=== PATIENT | male | born 1970 | race Caucasian/White ===

== ENCOUNTER 2018-05-17 14:08 | Inpatient (IN) | payer SELFPAY ==
[2018-05-17 14:20] VITALS: BP 183/112; PULSE 110; RESP 24; TEMP 37.5; O2SAT 95; BMI 29.2
--- NOTE | 2018-05-17 14:27 | DI.RAD.S_ITS ---
PROCEDURE: XR CHEST 2V INDICATIONS: short of breath, cough TECHNIQUE: 2 views of the chest were acquired. COMPARISON: None. FINDINGS: Surgical changes and devices: None. Lungs and pleura: Centrilobular and interstitial infiltrates are seen, which are more prominent on the right side than on the left. No pneumothorax is seen. No large pleural effusion. Mediastinum: Mediastinal contours are normal. Heart size is normal. Bones and chest wall: No suspicious bony abnormalities. Soft tissues appear unremarkable. IMPRESSION: Central alveolar and interstitial type infiltrates are seen. This is felt most likely to be related to infection, although differential diagnosis includes fluid overload and inflammatory change. If it would be helpful for clinical management decision making, please consider a dedicated chest CT with contrast for further evaluation. Dictated by: Dusty Veronica M.D. on 05/17/2018 at 13:55 Approved by: Dusty Veronica M.D. on 05/17/2018 at 13:56
[2018-05-17 14:35] VITALS: O2SAT 97
[2018-05-17] MEDS: ALBUTEROL/IPRATROPIUM 3 ML AMPUL INH (14:35)
--- NOTE | 2018-05-17 14:38 | PC.NURSE ---
Per RT, Wheezes heard t/o lungs. Duo neb per protocol
[2018-05-17 14:45] VITALS: O2SAT 97
--- NOTE | 2018-05-17 15:16 | ED.SOB ---
HPI - SOB/Dyspnea <DEV Spear - Last Filed: 05/17/18 22:27> General Chief Complaint: Shortness of Breath/Dyspnea Stated Complaint: shortness of breath, coughing blood up Time Seen by Provider: 05/17/18 15:05 Source: patient Mode of arrival: ambulatory Limitations: no limitations History of Present Illness 47-year-old male with history of hypertension that is an occasional smoker here for complaint of having cough that has been productive over the past couple of weeks. He also reports of having has sensation of chest pressure during the same timeframe. He has been coughing up whitish phlegm with blood tinged sputum. He states he has had a for low-grade fever over the same timeframe. He was seen at the [facility] 2 weeks ago there was some thought that he was having some ST elevation on his EKG troponin was negative. D-dimer was obtained and was elevated. he was instructed to go to the emergency room for further evaluation and he did not. He has not been seen since this timeframe. He reports the symptoms have not resolved. Positive p.o. intake. No nausea vomiting. Related Data Home Medications Medication Instructions Recorded Confirmed diltiazem HCl 240 mg PO QPM 05/17/18 05/17/18 tizanidine 4 mg PO Q6-8H PRN 05/17/18 05/17/18 trazodone 50 mg PO BEDTIME 05/17/18 05/17/18 Allergies Allergy/AdvReac Type Severity Reaction Status Date / Time No Known Drug Allergies Allergy Verified 05/17/18 17:42 Review of Systems <DEV Spear - Last Filed: 05/17/18 22:27> Constitutional Denies chills, Reports fever(s), Denies lethargy and Denies weakness Eyes Denies change in vision, Denies eye discharge, Denies irritation and Denies loss of vision ENT Ears, Nose, Mouth, and Throat: Denies change in voice, Denies neck pain, Denies sore throat and Denies throat swelling Cardiovascular Denies chest pain, Denies irregular heart rhythm, Denies lightheadedness, Denies palpitations and Denies orthopnea Comments: Chest pressure Respiratory Reports chest congestion, Reports cough and Denies wheezing Gastrointestinal Gastrointestinal: Denies abdominal pain, Denies change in bowel habits, Denies diarrhea, Denies nausea and Denies vomiting Genitourinary Denies hematuria, Denies flank pain, Denies urinary incontinence and Denies urinary urgency Musculoskeletal Denies neck pain Integumentary/Breasts Denies pruritus, Denies erythema, Denies rash and Denies wounds Neurologic Denies confusion, Denies loss of vision and Denies weakness Psychiatric Denies anxiety, Denies confusion, Denies depression, Denies homicidal ideation and Denies suicidal ideation Endocrine Denies palpitations Allergic/Immunologic Denies urticaria, Denies throat swelling and Denies wheezing Exam <DEV Spear - Last Filed: 05/17/18 22:27> Initial Vital Signs Initial Vital Signs: Vital Signs Temperature 99.5 F 05/17/18 14:20 Pulse Rate 110 H 05/17/18 14:20 Respiratory Rate 24 05/17/18 14:20 Blood Pressure 183/112 H 05/17/18 14:20 Pulse Oximetry 95 05/17/18 14:20 Const General: cooperative and well developed Nutritional Appearance: well nourished Orientation: alert, awake and oriented x3 HENMT Mouth: oral mucosae normal and moist mucous membranes Eyes Conjunctivae: conjunctivae normal Sclera: sclerae normal Pupils: PERRL EOM: EOM intact bilaterally Neck Neck: normal visual inspection, trachea midline, No lymphadenopathy, No midline deformity and No JVD Lymphatic: No lymphedema Resp Effort & Inspection: normal respiratory effort, able to speak in complete sentences, no respiratory distress and no use of accessory muscles Auscultation: not clear to auscultation bilaterally, rales, no rhonchi and no wheezes Cardio Rate: regular rate Rhythm: regular rhythm Heart Sounds: no click, no gallops, no murmurs and no rubs Pulses: normal peripheral pulses Skin General: no rashes or lesions noted, No jaundice and No petechiae Neuro General: alert, oriented x3, gait normal and no focal motor deficits Speech: speech normal <Tayler Alejo DO - Last Filed: 05/18/18 17:18> Initial Vital Signs Initial Vital Signs: Vital Signs Temperature 99.5 F 05/17/18 14:20 Pulse Rate 110 H 05/17/18 14:20 Respiratory Rate 24 05/17/18 14:20 Blood Pressure 183/112 H 05/17/18 14:20 Pulse Oximetry 95 05/17/18 14:20 Course <DEV Spear - Last Filed: 05/17/18 22:27> Orders Ordered: ED Orders 05/18/18 09:21 Consult to Respiratory Therapy Evaluate & Treat Discontinued Medications Hydrocodone Bitart/Acetaminophen ([place] 5/325) 1 tab PO Q12H PRN PRN Reason: Pain, Moderate (4-6) Last Admin: 05/18/18 10:05 Dose: 1 tab Admin: 05/17/18 22:55 Dose: 1 tab Hydrocodone Bitart/Acetaminophen ([place] 5/325) 2 tab PO Q12H PRN PRN Reason: Pain, Severe (7-10) Last Admin: 05/18/18 01:01 Dose: 1 tab Albuterol (Ventolin) 2.5 mg INH NOW ONE Stop: 05/17/18 15:06 Last Admin: 05/17/18 15:53 Dose: 2.5 mg Albuterol/Ipratropium (Duoneb) 3 ml INH NOW ONE Stop: 05/17/18 14:34 Last Admin: 05/17/18 14:35 Dose: 3 ml Albuterol/Ipratropium (Duoneb) 3 ml INH NOW PRN PRN Reason: Shortness Of Breath Or Wheezing Last Admin: 05/18/18 10:03 Dose: 3 ml Diltiazem HCl (Cardizem Cd) 240 mg PO QPM PATRICIA Last Admin: 05/17/18 20:21 Dose: 240 mg Admin: 05/17/18 20:02 Dose: 240 mg Furosemide (Lasix) 40 mg IV NOW ONE Stop: 05/17/18 17:21 Last Admin: 05/17/18 17:30 Dose: 40 mg Sodium Chloride (Normal Saline 0.9%) 1,000 mls @ 1,000 mls/hr IV BOLUS ONE Stop: 05/17/18 16:14 Last Infusion: 05/17/18 17:09 Dose: 0 mls/hr Admin: 05/17/18 15:53 Dose: 1,000 mls/hr Levofloxacin (Levaquin) 750 mg in 150 mls @ 100 mls/hr IV NOW ONE Stop: 05/17/18 18:49 Last Infusion: 05/17/18 17:38 Dose: 100 mls/hr Admin: 05/17/18 17:30 Dose: 100 mls/hr Dextrose/Sodium Chloride (Dextrose 5%-0.9% Ns) 1,000 mls @ 100 mls/hr IV CONT PATRICIA Last Admin: 05/18/18 05:20 Dose: 100 mls/hr Infusion: 05/18/18 05:20 Dose: 100 mls/hr Admin: 05/17/18 19:27 Dose: 100 mls/hr Levofloxacin (Levaquin) 500 mg in 100 mls @ 100 mls/hr IV Q24H [facility] Last Infusion: 05/18/18 10:02 Dose: 0 mls/hr Admin: 05/18/18 09:23 Dose: 100 mls/hr Lorazepam (Ativan) 1 mg IV NOW ONE Stop: 05/18/18 05:29 Last Admin: 05/18/18 05:40 Dose: 1 mg Lorazepam (Ativan) 1 mg IV Q4HR PRN PRN Reason: Anxiety Tizanidine HCl (Zanaflex) 4 mg PO Q6H PRN PRN Reason: Spasms Last Admin: 05/17/18 20:22 Dose: 4 mg Tramadol HCl (Ultram) 50 mg PO NOW ONE Stop: 05/18/18 01:10 Last Admin: 05/18/18 01:19 Dose: 50 mg Trazodone HCl (Desyrel) 50 mg PO BEDTIME [facility] Last Admin: 05/17/18 20:22 Dose: 50 mg Zolpidem Tartrate (Ambien) 10 mg PO BEDTIME PRN PRN Reason: Sleep Last Admin: 05/17/18 22:55 Dose: 10 mg Vital Signs - 8 hr 05/18/18 10:03 Pulse Rate 87 Respiratory Rate 22 Pulse Oximetry 88 L <Tayler Alejo, - Last Filed: 05/18/18 17:18> Orders Ordered: ED Orders 05/18/18 09:21 Consult to Respiratory Therapy Evaluate & Treat Discontinued Medications Hydrocodone Bitart/Acetaminophen ([place] 5/325) 1 tab PO Q12H PRN PRN Reason: Pain, Moderate (4-6) Last Admin: 05/18/18 10:05 Dose: 1 tab Admin: 05/17/18 22:55 Dose: 1 tab Hydrocodone Bitart/Acetaminophen ([place] 5/325) 2 tab PO Q12H PRN PRN Reason: Pain, Severe (7-10) Last Admin: 05/18/18 01:01 Dose: 1 tab Albuterol (Ventolin) 2.5 mg INH NOW ONE Stop: 05/17/18 15:06 Last Admin: 05/17/18 15:53 Dose: 2.5 mg Albuterol/Ipratropium (Duoneb) 3 ml INH NOW ONE Stop: 05/17/18 14:34 Last Admin: 05/17/18 14:35 Dose: 3 ml Albuterol/Ipratropium (Duoneb) 3 ml INH NOW PRN PRN Reason: Shortness Of Breath Or Wheezing Last Admin: 05/18/18 10:03 Dose: 3 ml Diltiazem HCl (Cardizem Cd) 240 mg PO QPM PATRICIA Last Admin: 05/17/18 20:21 Dose: 240 mg Admin: 05/17/18 20:02 Dose: 240 mg Furosemide (Lasix) 40 mg IV NOW ONE Stop: 05/17/18 17:21 Last Admin: 05/17/18 17:30 Dose: 40 mg Sodium Chloride (Normal Saline 0.9%) 1,000 mls @ 1,000 mls/hr IV BOLUS ONE Stop: 05/17/18 16:14 Last Infusion: 05/17/18 17:09 Dose: 0 mls/hr Admin: 05/17/18 15:53 Dose: 1,000 mls/hr Levofloxacin (Levaquin) 750 mg in 150 mls @ 100 mls/hr IV NOW ONE Stop: 05/17/18 18:49 Last Infusion: 05/17/18 17:38 Dose: 100 mls/hr Admin: 05/17/18 17:30 Dose: 100 mls/hr Dextrose/Sodium Chloride (Dextrose 5%-0.9% Ns) 1,000 mls @ 100 mls/hr IV CONT PATRICIA Last Admin: 05/18/18 05:20 Dose: 100 mls/hr Infusion: 05/18/18 05:20 Dose: 100 mls/hr Admin: 05/17/18 19:27 Dose: 100 mls/hr Levofloxacin (Levaquin) 500 mg in 100 mls @ 100 mls/hr IV Q24H PATRICIA Last Infusion: 05/18/18 10:02 Dose: 0 mls/hr Admin: 05/18/18 09:23 Dose: 100 mls/hr Lorazepam (Ativan) 1 mg IV NOW ONE Stop: 05/18/18 05:29 Last Admin: 05/18/18 05:40 Dose: 1 mg Lorazepam (Ativan) 1 mg IV Q4HR PRN PRN Reason: Anxiety Tizanidine HCl (Zanaflex) 4 mg PO Q6H PRN PRN Reason: Spasms Last Admin: 05/17/18 20:22 Dose: 4 mg Tramadol HCl (Ultram) 50 mg PO NOW ONE Stop: 05/18/18 01:10 Last Admin: 05/18/18 01:19 Dose: 50 mg Trazodone HCl (Desyrel) 50 mg PO BEDTIME PATRICIA Last Admin: 05/17/18 20:22 Dose: 50 mg Zolpidem Tartrate (Ambien) 10 mg PO BEDTIME PRN PRN Reason: Sleep Last Admin: 05/17/18 22:55 Dose: 10 mg Vital Signs - 8 hr 05/18/18 10:03 Pulse Rate 87 Respiratory Rate 22 Pulse Oximetry 88 L MDM - SOB/Dyspnea <DVE Spear - Last Filed: 05/17/18 22:27> Lab Data Result diagrams: 05/18/18 05:00 05/17/18 15:15 Lab Results 05/17/18 05/17/18 05/17/18 Range/Units 15:15 15:15 15:15 WBC 7.7 (4.5-11.0) X10^3/uL RBC 3.93 L (4.5-5.9) X10^6/uL Hgb 11.3 L (13.5-17.5) g/dL Hct 33.2 L (41-53) % MCV 84.4 (80-100) fL MCH 28.8 (26-34) PG MCHC 34.1 (30-36) % RDW 12.9 (11.6-14.8) % Plt Count 309 (150-400) X10^3/uL Neut % (Auto) 76.3 H (50-75) % Lymph % (Auto) 13.8 L (25-40) % Walker % (Auto) 8.8 (3-14) % Eos % (Auto) 0.6 L (2-4) % Baso % (Auto) 0.5 (0-2) % Neut # (Auto) 5900 (5469-0286) /uL ESR (0-15) MM/HR PT (10.1-12.7) SECONDS INR (0.9-1.3) APTT (26.4-36.2) SECONDS Sodium 139 (137-145) mmol/L Potassium 3.7 (3.4-5.1) mmol/L Chloride 101 (98-107) mmol/L Carbon Dioxide 28 (22-32) mmol/L BUN 16 (9-20) mg/dL Creatinine 0.80 (0.66-1.25) mg/dL Estimated GFR > 60.0 (>60) mL/min BUN/Creatinine Ratio 20.0 (6-22) Glucose 113 H (70-100) mg/dL Lactate (0.7-2.1) mmol/L Calcium 8.6 (8.4-10.2) mg/dL Total Bilirubin 0.5 (0.2-1.3) mg/dL AST 55 (17-59) IU/L ALT 63 (21-72) IU/L Alkaline Phosphatase 63 (38-126) U/L Total Creatine Kinase (55-170) U/L CK-MB (CK-2) CK-MB (CK-2) Rel Index Troponin I (0.01-0.034) ng/mL C-Reactive Protein (<1.0) mg/dL B-Natriuretic Peptide (<100) Total Protein 6.0 L (6.3-8.2) g/dL Albumin 3.4 L (3.5-5.0) g/dL Globulin 2.6 (1.7-4.1) g/dL Albumin/Globulin Ratio 1.3 (1.0-2.8) Procalcitonin < 0.05 (<0.5) ng/mL Nasal Screen MRSA (PCR) (Negative) Chlamy pneumoniae PCR (Not Detect) Adenovirus (PCR) (Not Detect) B.parapertussis DNA PCR (Not Detect) Coronavirus OC43 (PCR) (Not Detect) Coronavirus HKU1 (PCR) (Not Detect) Coronavirus 229E (PCR) (Not Detect) Coronavirus NL63 (PCR) (Not Detect) HIV 1&2 Antibody (NEGATIVE) Human Metapneumovir PCR (Not Detect) Influenza Type A (PCR) (Not Detect) Influenza Type B (PCR) (Not Detect) M. pneumoniae (PCR) (Not Detect) Parainfluenza 1 (PCR) (Not Detect) Parainfluenza 2 (PCR) (Not Detect) Parainfluenza 3 (PCR) (Not Detect) Parainfluenza 4 (PCR) (Not Detect) RSV (PCR) (Not Detect) Entero/Rhino (PCR) (Not Detect) 05/17/18 05/17/18 05/17/18 Range/Units 15:15 15:15 15:15 WBC (4.5-11.0) X10^3/uL RBC (4.5-5.9) X10^6/uL Hgb (13.5-17.5) g/dL Hct (41-53) % MCV (80-100) fL MCH (26-34) PG MCHC (30-36) % RDW (11.6-14.8) % Plt Count (150-400) X10^3/uL Neut % (Auto) (50-75) % Lymph % (Auto) (25-40) % Walker % (Auto) (3-14) % Eos % (Auto) (2-4) % Baso % (Auto) (0-2) % Neut # (Auto) (5775-2743) /uL ESR (0-15) MM/HR PT (10.1-12.7) SECONDS INR (0.9-1.3) APTT (26.4-36.2) SECONDS Sodium (137-145) mmol/L Potassium (3.4-5.1) mmol/L Chloride (98-107) mmol/L Carbon Dioxide (22-32) mmol/L BUN (9-20) mg/dL Creatinine (0.66-1.25) mg/dL Estimated GFR (>60) mL/min BUN/Creatinine Ratio (6-22) Glucose (70-100) mg/dL Lactate 0.9 (0.7-2.1) mmol/L Calcium (8.4-10.2) mg/dL Total Bilirubin (0.2-1.3) mg/dL AST (17-59) IU/L ALT (21-72) IU/L Alkaline Phosphatase (38-126) U/L Total Creatine Kinase 91 (55-170) U/L CK-MB (CK-2) TNP CK-MB (CK-2) Rel Index TNP Troponin I 0.052 H (0.01-0.034) ng/mL C-Reactive Protein (<1.0) mg/dL B-Natriuretic Peptide 409.0 H (<100) Total Protein (6.3-8.2) g/dL Albumin (3.5-5.0) g/dL Globulin (1.7-4.1) g/dL Albumin/Globulin Ratio (1.0-2.8) Procalcitonin (<0.5) ng/mL Nasal Screen MRSA (PCR) (Negative) Chlamy pneumoniae PCR (Not Detect) Adenovirus (PCR) (Not Detect) B.parapertussis DNA PCR (Not Detect) Coronavirus OC43 (PCR) (Not Detect) Coronavirus HKU1 (PCR) (Not Detect) Coronavirus 229E (PCR) (Not Detect) Coronavirus NL63 (PCR) (Not Detect) HIV 1&2 Antibody (NEGATIVE) Human Metapneumovir PCR (Not Detect) Influenza Type A (PCR) (Not Detect) Influenza Type B (PCR) (Not Detect) M. pneumoniae (PCR) (Not Detect) Parainfluenza 1 (PCR) (Not Detect) Parainfluenza 2 (PCR) (Not Detect) Parainfluenza 3 (PCR) (Not Detect) Parainfluenza 4 (PCR) (Not Detect) RSV (PCR) (Not Detect) Entero/Rhino (PCR) (Not Detect) 05/17/18 05/17/18 05/17/18 Range/Units 19:00 20:02 20:02 WBC (4.5-11.0) X10^3/uL RBC (4.5-5.9) X10^6/uL Hgb (13.5-17.5) g/dL Hct (41-53) % MCV (80-100) fL MCH (26-34) PG MCHC (30-36) % RDW (11.6-14.8) % Plt Count (150-400) X10^3/uL Neut % (Auto) (50-75) % Lymph % (Auto) (25-40) % Walker % (Auto) (3-14) % Eos % (Auto) (2-4) % Baso % (Auto) (0-2) % Neut # (Auto) (2717-2208) /uL ESR (0-15) MM/HR PT 14.5 H (10.1-12.7) SECONDS INR 1.3 (0.9-1.3) APTT 33 (26.4-36.2) SECONDS Sodium (137-145) mmol/L Potassium (3.4-5.1) mmol/L Chloride (98-107) mmol/L Carbon Dioxide (22-32) mmol/L BUN (9-20) mg/dL Creatinine (0.66-1.25) mg/dL Estimated GFR (>60) mL/min BUN/Creatinine Ratio (6-22) Glucose (70-100) mg/dL Lactate (0.7-2.1) mmol/L Calcium (8.4-10.2) mg/dL Total Bilirubin (0.2-1.3) mg/dL AST (17-59) IU/L ALT (21-72) IU/L Alkaline Phosphatase (38-126) U/L Total Creatine Kinase (55-170) U/L CK-MB (CK-2) CK-MB (CK-2) Rel Index Troponin I (0.01-0.034) ng/mL C-Reactive Protein 6.1 H (<1.0) mg/dL B-Natriuretic Peptide (<100) Total Protein (6.3-8.2) g/dL Albumin (3.5-5.0) g/dL Globulin (1.7-4.1) g/dL Albumin/Globulin Ratio (1.0-2.8) Procalcitonin (<0.5) ng/mL Nasal Screen MRSA (PCR) Negative for mrsa (Negative) Chlamy pneumoniae PCR (Not Detect) Adenovirus (PCR) (Not Detect) B.parapertussis DNA PCR (Not Detect) Coronavirus OC43 (PCR) (Not Detect) Coronavirus HKU1 (PCR) (Not Detect) Coronavirus 229E (PCR) (Not Detect) Coronavirus NL63 (PCR) (Not Detect) HIV 1&2 Antibody (NEGATIVE) Human Metapneumovir PCR (Not Detect) Influenza Type A (PCR) (Not Detect) Influenza Type B (PCR) (Not Detect) M. pneumoniae (PCR) (Not Detect) Parainfluenza 1 (PCR) (Not Detect) Parainfluenza 2 (PCR) (Not Detect) Parainfluenza 3 (PCR) (Not Detect) Parainfluenza 4 (PCR) (Not Detect) RSV (PCR) (Not Detect) Entero/Rhino (PCR) (Not Detect) 05/17/18 05/18/18 05/18/18 Range/Units 20:02 05:00 Unknown WBC 6.8 (4.5-11.0) X10^3/uL RBC 3.74 L (4.5-5.9) X10^6/uL Hgb 10.7 L (13.5-17.5) g/dL Hct 31.6 L (41-53) % MCV 84.5 (80-100) fL MCH 28.6 (26-34) PG MCHC 33.9 (30-36) % RDW 13.0 (11.6-14.8) % Plt Count 285 (150-400) X10^3/uL Neut % (Auto) 70.7 (50-75) % Lymph % (Auto) 16.4 L (25-40) % Walker % (Auto) 11.9 (3-14) % Eos % (Auto) 0.6 L (2-4) % Baso % (Auto) 0.4 (0-2) % Neut # (Auto) 4800 (0923-1519) /uL ESR 42 H (0-15) MM/HR PT (10.1-12.7) SECONDS INR (0.9-1.3) APTT (26.4-36.2) SECONDS Sodium (137-145) mmol/L Potassium (3.4-5.1) mmol/L Chloride (98-107) mmol/L Carbon Dioxide (22-32) mmol/L BUN (9-20) mg/dL Creatinine (0.66-1.25) mg/dL Estimated GFR (>60) mL/min BUN/Creatinine Ratio (6-22) Glucose (70-100) mg/dL Lactate (0.7-2.1) mmol/L Calcium (8.4-10.2) mg/dL Total Bilirubin (0.2-1.3) mg/dL AST (17-59) IU/L ALT (21-72) IU/L Alkaline Phosphatase (38-126) U/L Total Creatine Kinase (55-170) U/L CK-MB (CK-2) CK-MB (CK-2) Rel Index Troponin I (0.01-0.034) ng/mL C-Reactive Protein (<1.0) mg/dL B-Natriuretic Peptide 440.0 H (<100) Total Protein (6.3-8.2) g/dL Albumin (3.5-5.0) g/dL Globulin (1.7-4.1) g/dL Albumin/Globulin Ratio (1.0-2.8) Procalcitonin (<0.5) ng/mL Nasal Screen MRSA (PCR) (Negative) Chlamy pneumoniae PCR (Not Detect) Adenovirus (PCR) (Not Detect) B.parapertussis DNA PCR (Not Detect) Coronavirus OC43 (PCR) (Not Detect) Coronavirus HKU1 (PCR) (Not Detect) Coronavirus 229E (PCR) (Not Detect) Coronavirus NL63 (PCR) (Not Detect) HIV 1&2 Antibody Negative (NEGATIVE) Human Metapneumovir PCR (Not Detect) Influenza Type A (PCR) (Not Detect) Influenza Type B (PCR) (Not Detect) M. pneumoniae (PCR) (Not Detect) Parainfluenza 1 (PCR) (Not Detect) Parainfluenza 2 (PCR) (Not Detect) Parainfluenza 3 (PCR) (Not Detect) Parainfluenza 4 (PCR) (Not Detect) RSV (PCR) (Not Detect) Entero/Rhino (PCR) (Not Detect) 05/18/18 Range/Units Unknown WBC (4.5-11.0) X10^3/uL RBC (4.5-5.9) X10^6/uL Hgb (13.5-17.5) g/dL Hct (41-53) % MCV (80-100) fL MCH (26-34) PG MCHC (30-36) % RDW (11.6-14.8) % Plt Count (150-400) X10^3/uL Neut % (Auto) (50-75) % Lymph % (Auto) (25-40) % Walker % (Auto) (3-14) % Eos % (Auto) (2-4) % Baso % (Auto) (0-2) % Neut # (Auto) (1589-1361) /uL ESR (0-15) MM/HR PT (10.1-12.7) SECONDS INR (0.9-1.3) APTT (26.4-36.2) SECONDS Sodium (137-145) mmol/L Potassium (3.4-5.1) mmol/L Chloride (98-107) mmol/L Carbon Dioxide (22-32) mmol/L BUN (9-20) mg/dL Creatinine (0.66-1.25) mg/dL Estimated GFR (>60) mL/min BUN/Creatinine Ratio (6-22) Glucose (70-100) mg/dL Lactate (0.7-2.1) mmol/L Calcium (8.4-10.2) mg/dL Total Bilirubin (0.2-1.3) mg/dL AST (17-59) IU/L ALT (21-72) IU/L Alkaline Phosphatase (38-126) U/L Total Creatine Kinase (55-170) U/L CK-MB (CK-2) CK-MB (CK-2) Rel Index Troponin I (0.01-0.034) ng/mL C-Reactive Protein (<1.0) mg/dL B-Natriuretic Peptide (<100) Total Protein (6.3-8.2) g/dL Albumin (3.5-5.0) g/dL Globulin (1.7-4.1) g/dL Albumin/Globulin Ratio (1.0-2.8) Procalcitonin (<0.5) ng/mL Nasal Screen MRSA (PCR) (Negative) Chlamy pneumoniae PCR Not detected (Not Detect) Adenovirus (PCR) Not detected (Not Detect) B.parapertussis DNA PCR Not detected (Not Detect) Coronavirus OC43 (PCR) Not detected (Not Detect) Coronavirus HKU1 (PCR) Not detected (Not Detect) Coronavirus 229E (PCR) Not detected (Not Detect) Coronavirus NL63 (PCR) Not detected (Not Detect) HIV 1&2 Antibody (NEGATIVE) Human Metapneumovir PCR Not detected (Not Detect) Influenza Type A (PCR) Not detected (Not Detect) Influenza Type B (PCR) Not detected (Not Detect) M. pneumoniae (PCR) Not detected (Not Detect) Parainfluenza 1 (PCR) Not detected (Not Detect) Parainfluenza 2 (PCR) Not detected (Not Detect) Parainfluenza 3 (PCR) Not detected (Not Detect) Parainfluenza 4 (PCR) Not detected (Not Detect) RSV (PCR) Not detected (Not Detect) Entero/Rhino (PCR) Not detected (Not Detect) Imaging Data Chest x-ray: Radiologist's impression: [address] [place] [id number] XRay Report Signed Patient: Al Velez EMR#: [id number] : 1970Acct:[id number] Age/Sex: 47 / MDate of Service: 05/17/18 Loc: ED Accession Number: [id number] Procedure: XR chest 2V Ordering Provider: Tayler Alejo D.O. PROCEDURE: XR CHEST 2V INDICATIONS: short of breath, cough TECHNIQUE: 2 views of the chest were acquired. COMPARISON: None. FINDINGS: Surgical changes and devices: None. Lungs and pleura: Centrilobular and interstitial infiltrates are seen, which are more prominent on the right side than on the left. No pneumothorax is seen. No large pleural effusion. Mediastinum: Mediastinal contours are normal. Heart size is normal. Bones and chest wall: No suspicious bony abnormalities. Soft tissues appear unremarkable. IMPRESSION: Central alveolar and interstitial type infiltrates are seen. This is felt most likely to be related to infection, although differential diagnosis includes fluid overload and inflammatory change. If it would be helpful for clinical management decision making, please consider a dedicated chest CT with contrast for further evaluation. Dictated by: Dusty Veronica M.D. on 05/17/2018 at 13:55 Approved by: Dusty Veronica M.D. on 05/17/2018 at 13:56 CT scan - chest: Radiologist's impression: [address] [address] [address] Scan Report Signed Patient: Al Velez EMR#: [id number] : 1970Acct:[id number] Age/Sex: 47 / MDate of Service: 05/17/18 Loc: ED Accession Number: [id number] Procedure: CT angio chest PE protocol Ordering Provider: Saad Chauhan PROCEDURE: CT ANGIO CHEST PE PROTOCOL INDICATIONS: chest pressure and tachycardia TECHNIQUE: After the administration of intravenous contrast, 2 mm thick sections acquired from the pulmonary apices to the posterior costophrenic angles. 3-dimensional maximum intensity projection (MIP) coronal and sagittal reformats were then acquired through the thorax. For radiation dose reduction, the following was used: automated exposure control, adjustment of mA and/or kV according to patient size. COMPARISON: None. FINDINGS: Image quality: Excellent. Pulmonary arteries: Pulmonary arteries are normal in size, and demonstrate no intraluminal filling defects to suggest central pulmonary embolism. Lungs and pleura: Lungs are abnormal with bilateral patchy moderately severe pneumonia, slightly greater on the right than the left. There are bilateral free-flowing pleural effusions and no pneumothorax. Central and peripheral airways are patent. Mediastinum: Heart size is normal, without pericardial effusion. No discrete mediastinal or hilar adenopathy but the radiodensity of the fatty soft tissues within the right hilum and middle mediastinum is higher than is usually seen and this may reflect mediastinal edema versus confluent adenopathy.. Thoracic aorta is normal in caliber and enhancement. Esophagus is normal in caliber, without hiatal hernia. Bones and chest wall: No suspicious bony lesions. Ribs and thoracic spine appear intact throughout. Thyroid gland appears normal where well visualized. No axillary or supraclavicular adenopathy. Abdomen: Visualized upper abdominal solid organs appear normal in the early arterial phase of enhancement. The gallbladder contains calcified 1 cm gallstones, numerous and filling the gallbladder lumen. Biliary obstruction is not associated. IMPRESSION: No pulmonary embolus found. Severe bilateral pneumonia slightly greater on the right than the left. Bilateral simple appearing water density free-flowing effusions. Mediastinal and right hilar edema versus confluent adenopathy. The gallbladder is stone filled but does not show evidence of acute cholecystitis or biliary obstruction. After the acute disease process is managed surgical consultation for consideration of cholecystectomy is recommended. Dictated by: Yvon Brown M.D. on 05/17/2018 at 16:43 Approved by: Yvon Brown M.D. on 05/17/2018 at 16:46 MDM Narrative Medical decision making narrative: CBC shows normal white count. CBC also shows mild anemia otherwise unremarkable. Lactate was obtained was negative. Procalcitonin was obtained was also negative. BnP was obtained and was elevated at 409. troponin was indeterminate at 0.052 chest x-ray shows areas of consolidation bilaterally greater to the right than the left. CT scan PE protocol was obtained and was negative for PE. CT does show significant bilateral pneumonia, CT also shows incidental finding of a gallbladder stones no acute signs of cholecystitis. he is prescribed Levaquin in the emergency room. Blood cultures are pending. Due to elevated BNP Lasix is ordered. <Tayler Mary Ann Alejo, DO - Last Filed: 05/18/18 17:18> Lab Data Lab Results 05/17/18 05/17/18 05/17/18 Range/Units 15:15 15:15 15:15 WBC 7.7 (4.5-11.0) X10^3/uL RBC 3.93 L (4.5-5.9) X10^6/uL Hgb 11.3 L (13.5-17.5) g/dL Hct 33.2 L (41-53) % MCV 84.4 (80-100) fL MCH 28.8 (26-34) PG MCHC 34.1 (30-36) % RDW 12.9 (11.6-14.8) % Plt Count 309 (150-400) X10^3/uL Neut % (Auto) 76.3 H (50-75) % Lymph % (Auto) 13.8 L (25-40) % Walker % (Auto) 8.8 (3-14) % Eos % (Auto) 0.6 L (2-4) % Baso % (Auto) 0.5 (0-2) % Neut # (Auto) 5900 (2546-2936) /uL ESR (0-15) MM/HR PT (10.1-12.7) SECONDS INR (0.9-1.3) APTT (26.4-36.2) SECONDS Sodium 139 (137-145) mmol/L Potassium 3.7 (3.4-5.1) mmol/L Chloride 101 (98-107) mmol/L Carbon Dioxide 28 (22-32) mmol/L BUN 16 (9-20) mg/dL Creatinine 0.80 (0.66-1.25) mg/dL Estimated GFR > 60.0 (>60) mL/min BUN/Creatinine Ratio 20.0 (6-22) Glucose 113 H (70-100) mg/dL Lactate (0.7-2.1) mmol/L Calcium 8.6 (8.4-10.2) mg/dL Total Bilirubin 0.5 (0.2-1.3) mg/dL AST 55 (17-59) IU/L ALT 63 (21-72) IU/L Alkaline Phosphatase 63 (38-126) U/L Total Creatine Kinase (55-170) U/L CK-MB (CK-2) CK-MB (CK-2) Rel Index Troponin I (0.01-0.034) ng/mL C-Reactive Protein (<1.0) mg/dL B-Natriuretic Peptide (<100) Total Protein 6.0 L (6.3-8.2) g/dL Albumin 3.4 L (3.5-5.0) g/dL Globulin 2.6 (1.7-4.1) g/dL Albumin/Globulin Ratio 1.3 (1.0-2.8) Procalcitonin < 0.05 (<0.5) ng/mL Nasal Screen MRSA (PCR) (Negative) Chlamy pneumoniae PCR (Not Detect) Adenovirus (PCR) (Not Detect) B.parapertussis DNA PCR (Not Detect) Coronavirus OC43 (PCR) (Not Detect) Coronavirus HKU1 (PCR) (Not Detect) Coronavirus 229E (PCR) (Not Detect) Coronavirus NL63 (PCR) (Not Detect) HIV 1&2 Antibody (NEGATIVE) Human Metapneumovir PCR (Not Detect) Influenza Type A (PCR) (Not Detect) Influenza Type B (PCR) (Not Detect) M. pneumoniae (PCR) (Not Detect) Parainfluenza 1 (PCR) (Not Detect) Parainfluenza 2 (PCR) (Not Detect) Parainfluenza 3 (PCR) (Not Detect) Parainfluenza 4 (PCR) (Not Detect) RSV (PCR) (Not Detect) Entero/Rhino (PCR) (Not Detect) 05/17/18 05/17/18 05/17/18 Range/Units 15:15 15:15 15:15 WBC (4.5-11.0) X10^3/uL RBC (4.5-5.9) X10^6/uL Hgb (13.5-17.5) g/dL Hct (41-53) % MCV (80-100) fL MCH (26-34) PG MCHC (30-36) % RDW (11.6-14.8) % Plt Count (150-400) X10^3/uL Neut % (Auto) (50-75) % Lymph % (Auto) (25-40) % Walker % (Auto) (3-14) % Eos % (Auto) (2-4) % Baso % (Auto) (0-2) % Neut # (Auto) (9991-7744) /uL ESR (0-15) MM/HR PT (10.1-12.7) SECONDS INR (0.9-1.3) APTT (26.4-36.2) SECONDS Sodium (137-145) mmol/L Potassium (3.4-5.1) mmol/L Chloride (98-107) mmol/L Carbon Dioxide (22-32) mmol/L BUN (9-20) mg/dL Creatinine (0.66-1.25) mg/dL Estimated GFR (>60) mL/min BUN/Creatinine Ratio (6-22) Glucose (70-100) mg/dL Lactate 0.9 (0.7-2.1) mmol/L Calcium (8.4-10.2) mg/dL Total Bilirubin (0.2-1.3) mg/dL AST (17-59) IU/L ALT (21-72) IU/L Alkaline Phosphatase (38-126) U/L Total Creatine Kinase 91 (55-170) U/L CK-MB (CK-2) TNP CK-MB (CK-2) Rel Index TNP Troponin I 0.052 H (0.01-0.034) ng/mL C-Reactive Protein (<1.0) mg/dL B-Natriuretic Peptide 409.0 H (<100) Total Protein (6.3-8.2) g/dL Albumin (3.5-5.0) g/dL Globulin (1.7-4.1) g/dL Albumin/Globulin Ratio (1.0-2.8) Procalcitonin (<0.5) ng/mL Nasal Screen MRSA (PCR) (Negative) Chlamy pneumoniae PCR (Not Detect) Adenovirus (PCR) (Not Detect) B.parapertussis DNA PCR (Not Detect) Coronavirus OC43 (PCR) (Not Detect) Coronavirus HKU1 (PCR) (Not Detect) Coronavirus 229E (PCR) (Not Detect) Coronavirus NL63 (PCR) (Not Detect) HIV 1&2 Antibody (NEGATIVE) Human Metapneumovir PCR (Not Detect) Influenza Type A (PCR) (Not Detect) Influenza Type B (PCR) (Not Detect) M. pneumoniae (PCR) (Not Detect) Parainfluenza 1 (PCR) (Not Detect) Parainfluenza 2 (PCR) (Not Detect) Parainfluenza 3 (PCR) (Not Detect) Parainfluenza 4 (PCR) (Not Detect) RSV (PCR) (Not Detect) Entero/Rhino (PCR) (Not Detect) 05/17/18 05/17/18 05/17/18 Range/Units 19:00 20:02 20:02 WBC (4.5-11.0) X10^3/uL RBC (4.5-5.9) X10^6/uL Hgb (13.5-17.5) g/dL Hct (41-53) % MCV (80-100) fL MCH (26-34) PG MCHC (30-36) % RDW (11.6-14.8) % Plt Count (150-400) X10^3/uL Neut % (Auto) (50-75) % Lymph % (Auto) (25-40) % Walker % (Auto) (3-14) % Eos % (Auto) (2-4) % Baso % (Auto) (0-2) % Neut # (Auto) (7971-4715) /uL ESR (0-15) MM/HR PT 14.5 H (10.1-12.7) SECONDS INR 1.3 (0.9-1.3) APTT 33 (26.4-36.2) SECONDS Sodium (137-145) mmol/L Potassium (3.4-5.1) mmol/L Chloride (98-107) mmol/L Carbon Dioxide (22-32) mmol/L BUN (9-20) mg/dL Creatinine (0.66-1.25) mg/dL Estimated GFR (>60) mL/min BUN/Creatinine Ratio (6-22) Glucose (70-100) mg/dL Lactate (0.7-2.1) mmol/L Calcium (8.4-10.2) mg/dL Total Bilirubin (0.2-1.3) mg/dL AST (17-59) IU/L ALT (21-72) IU/L Alkaline Phosphatase (38-126) U/L Total Creatine Kinase (55-170) U/L CK-MB (CK-2) CK-MB (CK-2) Rel Index Troponin I (0.01-0.034) ng/mL C-Reactive Protein 6.1 H (<1.0) mg/dL B-Natriuretic Peptide (<100) Total Protein (6.3-8.2) g/dL Albumin (3.5-5.0) g/dL Globulin (1.7-4.1) g/dL Albumin/Globulin Ratio (1.0-2.8) Procalcitonin (<0.5) ng/mL Nasal Screen MRSA (PCR) Negative for mrsa (Negative) Chlamy pneumoniae PCR (Not Detect) Adenovirus (PCR) (Not Detect) B.parapertussis DNA PCR (Not Detect) Coronavirus OC43 (PCR) (Not Detect) Coronavirus HKU1 (PCR) (Not Detect) Coronavirus 229E (PCR) (Not Detect) Coronavirus NL63 (PCR) (Not Detect) HIV 1&2 Antibody (NEGATIVE) Human Metapneumovir PCR (Not Detect) Influenza Type A (PCR) (Not Detect) Influenza Type B (PCR) (Not Detect) M. pneumoniae (PCR) (Not Detect) Parainfluenza 1 (PCR) (Not Detect) Parainfluenza 2 (PCR) (Not Detect) Parainfluenza 3 (PCR) (Not Detect) Parainfluenza 4 (PCR) (Not Detect) RSV (PCR) (Not Detect) Entero/Rhino (PCR) (Not Detect) 05/17/18 05/18/18 05/18/18 Range/Units 20:02 05:00 Unknown WBC 6.8 (4.5-11.0) X10^3/uL RBC 3.74 L (4.5-5.9) X10^6/uL Hgb 10.7 L (13.5-17.5) g/dL Hct 31.6 L (41-53) % MCV 84.5 (80-100) fL MCH 28.6 (26-34) PG MCHC 33.9 (30-36) % RDW 13.0 (11.6-14.8) % Plt Count 285 (150-400) X10^3/uL Neut % (Auto) 70.7 (50-75) % Lymph % (Auto) 16.4 L (25-40) % Walker % (Auto) 11.9 (3-14) % Eos % (Auto) 0.6 L (2-4) % Baso % (Auto) 0.4 (0-2) % Neut # (Auto) 4800 (3161-4001) /uL ESR 42 H (0-15) MM/HR PT (10.1-12.7) SECONDS INR (0.9-1.3) APTT (26.4-36.2) SECONDS Sodium (137-145) mmol/L Potassium (3.4-5.1) mmol/L Chloride (98-107) mmol/L Carbon Dioxide (22-32) mmol/L BUN (9-20) mg/dL Creatinine (0.66-1.25) mg/dL Estimated GFR (>60) mL/min BUN/Creatinine Ratio (6-22) Glucose (70-100) mg/dL Lactate (0.7-2.1) mmol/L Calcium (8.4-10.2) mg/dL Total Bilirubin (0.2-1.3) mg/dL AST (17-59) IU/L ALT (21-72) IU/L Alkaline Phosphatase (38-126) U/L Total Creatine Kinase (55-170) U/L CK-MB (CK-2) CK-MB (CK-2) Rel Index Troponin I (0.01-0.034) ng/mL C-Reactive Protein (<1.0) mg/dL B-Natriuretic Peptide 440.0 H (<100) Total Protein (6.3-8.2) g/dL Albumin (3.5-5.0) g/dL Globulin (1.7-4.1) g/dL Albumin/Globulin Ratio (1.0-2.8) Procalcitonin (<0.5) ng/mL Nasal Screen MRSA (PCR) (Negative) Chlamy pneumoniae PCR (Not Detect) Adenovirus (PCR) (Not Detect) B.parapertussis DNA PCR (Not Detect) Coronavirus OC43 (PCR) (Not Detect) Coronavirus HKU1 (PCR) (Not Detect) Coronavirus 229E (PCR) (Not Detect) Coronavirus NL63 (PCR) (Not Detect) HIV 1&2 Antibody Negative (NEGATIVE) Human Metapneumovir PCR (Not Detect) Influenza Type A (PCR) (Not Detect) Influenza Type B (PCR) (Not Detect) M. pneumoniae (PCR) (Not Detect) Parainfluenza 1 (PCR) (Not Detect) Parainfluenza 2 (PCR) (Not Detect) Parainfluenza 3 (PCR) (Not Detect) Parainfluenza 4 (PCR) (Not Detect) RSV (PCR) (Not Detect) Entero/Rhino (PCR) (Not Detect) 05/18/18 Range/Units Unknown WBC (4.5-11.0) X10^3/uL RBC (4.5-5.9) X10^6/uL Hgb (13.5-17.5) g/dL Hct (41-53) % MCV (80-100) fL MCH (26-34) PG MCHC (30-36) % RDW (11.6-14.8) % Plt Count (150-400) X10^3/uL Neut % (Auto) (50-75) % Lymph % (Auto) (25-40) % Walker % (Auto) (3-14) % Eos % (Auto) (2-4) % Baso % (Auto) (0-2) % Neut # (Auto) (6215-1769) /uL ESR (0-15) MM/HR PT (10.1-12.7) SECONDS INR (0.9-1.3) APTT (26.4-36.2) SECONDS Sodium (137-145) mmol/L Potassium (3.4-5.1) mmol/L Chloride (98-107) mmol/L Carbon Dioxide (22-32) mmol/L BUN (9-20) mg/dL Creatinine (0.66-1.25) mg/dL Estimated GFR (>60) mL/min BUN/Creatinine Ratio (6-22) Glucose (70-100) mg/dL Lactate (0.7-2.1) mmol/L Calcium (8.4-10.2) mg/dL Total Bilirubin (0.2-1.3) mg/dL AST (17-59) IU/L ALT (21-72) IU/L Alkaline Phosphatase (38-126) U/L Total Creatine Kinase (55-170) U/L CK-MB (CK-2) CK-MB (CK-2) Rel Index Troponin I (0.01-0.034) ng/mL C-Reactive Protein (<1.0) mg/dL B-Natriuretic Peptide (<100) Total Protein (6.3-8.2) g/dL Albumin (3.5-5.0) g/dL Globulin (1.7-4.1) g/dL Albumin/Globulin Ratio (1.0-2.8) Procalcitonin (<0.5) ng/mL Nasal Screen MRSA (PCR) (Negative) Chlamy pneumoniae PCR Not detected (Not Detect) Adenovirus (PCR) Not detected (Not Detect) B.parapertussis DNA PCR Not detected (Not Detect) Coronavirus OC43 (PCR) Not detected (Not Detect) Coronavirus HKU1 (PCR) Not detected (Not Detect) Coronavirus 229E (PCR) Not detected (Not Detect) Coronavirus NL63 (PCR) Not detected (Not Detect) HIV 1&2 Antibody (NEGATIVE) Human Metapneumovir PCR Not detected (Not Detect) Influenza Type A (PCR) Not detected (Not Detect) Influenza Type B (PCR) Not detected (Not Detect) M. pneumoniae (PCR) Not detected (Not Detect) Parainfluenza 1 (PCR) Not detected (Not Detect) Parainfluenza 2 (PCR) Not detected (Not Detect) Parainfluenza 3 (PCR) Not detected (Not Detect) Parainfluenza 4 (PCR) Not detected (Not Detect) RSV (PCR) Not detected (Not Detect) Entero/Rhino (PCR) Not detected (Not Detect) Discharge Plan Departure Patient Disposition: Admitted As Inpatient Clinical Impression: Pneumonia, Congestive heart failure Discharge Date/Time: 05/17/18 17:41 Interventions: ED Discharge Assessment Last Done: 05/17/18 17:39 Admit Date/Time: 05/17/18 17:35 Admit Provider: Del Jaime <Tayler Alejo DO - Last Filed: 05/18/18 17:18> Cosign ED Attending Cosleonoraature Attestation: I was immediately available in the department for consultation. This documentation has been reviewed and I agree with assessment and plan. Supervised by Tayler Alejo DO
[2018-05-17 15:29] LABS: Add Manual Diff / Slide Review NO; Basophils Percent Auto 0.5 % (0-2); Eosinophils Percent Auto 0.6 % (2-4); Hematocrit 33.2 % (41-53); Hemoglobin 11.3 g/dL (13.5-17.5); Lymphocytes Percent Auto 13.8 % (25-40); Mean Corpuscular HGB Conc 34.1 % (30-36); Mean Corpuscular Hemoglobin 28.8 PG (26-34); Mean Corpuscular Volume 84.4 fL (80-100); Monocytes Percent Auto 8.8 % (3-14); Neutrophils Absolute Auto 5900 /uL (3000-5900); Neutrophils Percent Auto 76.3 % (50-75); Platelet Count 309 X10^3/uL (150-400); Red Blood Cell Count 3.93 X10^6/uL (4.5-5.9); Red Cell Distribution Width 12.9 % (11.6-14.8); White Blood Cell Count 7.7 X10^3/uL (4.5-11.0)
--- NOTE | 2018-05-17 15:43 | DI.CT.S_ITS ---
PROCEDURE: CT ANGIO CHEST PE PROTOCOL INDICATIONS: chest pressure and tachycardia TECHNIQUE: After the administration of intravenous contrast, 2 mm thick sections acquired from the pulmonary apices to the posterior costophrenic angles. 3-dimensional maximum intensity projection (MIP) coronal and sagittal reformats were then acquired through the thorax. For radiation dose reduction, the following was used: automated exposure control, adjustment of mA and/or kV according to patient size. COMPARISON: None. FINDINGS: Image quality: Excellent. Pulmonary arteries: Pulmonary arteries are normal in size, and demonstrate no intraluminal filling defects to suggest central pulmonary embolism. Lungs and pleura: Lungs are abnormal with bilateral patchy moderately severe pneumonia, slightly greater on the right than the left. There are bilateral free-flowing pleural effusions and no pneumothorax. Central and peripheral airways are patent. Mediastinum: Heart size is normal, without pericardial effusion. No discrete mediastinal or hilar adenopathy but the radiodensity of the fatty soft tissues within the right hilum and middle mediastinum is higher than is usually seen and this may reflect mediastinal edema versus confluent adenopathy.. Thoracic aorta is normal in caliber and enhancement. Esophagus is normal in caliber, without hiatal hernia. Bones and chest wall: No suspicious bony lesions. Ribs and thoracic spine appear intact throughout. Thyroid gland appears normal where well visualized. No axillary or supraclavicular adenopathy. Abdomen: Visualized upper abdominal solid organs appear normal in the early arterial phase of enhancement. The gallbladder contains calcified 1 cm gallstones, numerous and filling the gallbladder lumen. Biliary obstruction is not associated. IMPRESSION: No pulmonary embolus found. Severe bilateral pneumonia slightly greater on the right than the left. Bilateral simple appearing water density free-flowing effusions. Mediastinal and right hilar edema versus confluent adenopathy. The gallbladder is stone filled but does not show evidence of acute cholecystitis or biliary obstruction. After the acute disease process is managed surgical consultation for consideration of cholecystectomy is recommended. Dictated by: Yvon Brown M.D. on 05/17/2018 at 16:43 Approved by: Yvon Brown M.D. on 05/17/2018 at 16:46
[2018-05-17 15:44] LABS: Lactate (Lactic Acid) 0.9 mmol/L (0.7-2.1)
[2018-05-17 15:45] LABS: Alanine Aminotransferase 63 IU/L (21-72); Albumin 3.4 g/dL (3.5-5.0); Albumin Globulin Ratio 1.3 (1.0-2.8); Alkaline Phosphatase 63 U/L (38-126); Aspartate Aminotransferase 55 IU/L (17-59); Bilirubin Total 0.5 mg/dL (0.2-1.3); Blood Urea Nitrogen 16 mg/dL (9-20); Calcium 8.6 mg/dL (8.4-10.2); Carbon Dioxide 28 mmol/L (22-32); Chloride 101 mmol/L (98-107); Estimated Glomerular Filt Rate > 60.0 mL/min (>60); Globulin 2.6 g/dL (1.7-4.1); Glucose 113 mg/dL (70-100); HEMOLYSIS < 15 (0-50); Potassium 3.7 mmol/L (3.4-5.1); Sodium 139 mmol/L (137-145)
[2018-05-17] MEDS: SODIUM CHLORIDE 0.9% 1,000 ML 1000 ML IV (15:53)
[2018-05-17] MEDS: ALBUTEROL 2.5 MG/3 ML NEB (ADULT) INH (15:53)
[2018-05-17 16:00] LABS: Procalcitonin < 0.05 ng/mL (<0.5)
[2018-05-17 16:36] LABS: Creatine Kinase 91 U/L (55-170)
[2018-05-17 16:54] LABS: Troponin I 0.052 ng/mL (0.01-0.034)
[2018-05-17] MEDS: FUROSEMIDE 40 MG/4 ML VIAL IV (17:30)
[2018-05-17] MEDS: levoFLOXacin 750 MG/150 ML PIGGYBACK 100 MG IV (17:30)
--- NOTE | 2018-05-17 17:34 | ED_ITS ---
HPI - SOB/Dyspnea <DEV Spear - Last Filed: 05/17/18 22:27> General Chief Complaint: Shortness of Breath/Dyspnea Stated Complaint: shortness of breath, coughing blood up Time Seen by Provider: 05/17/18 15:05 Source: patient Mode of arrival: ambulatory Limitations: no limitations History of Present Illness 47-year-old male with history of hypertension that is an occasional smoker here for complaint of having cough that has been productive over the past couple of weeks. He also reports of having has sensation of chest pressure during the same timeframe. He has been coughing up whitish phlegm with blood tinged sputum. He states he has had a for low-grade fever over the same timeframe. He was seen at the [facility] 2 weeks ago there was some thought that he was having some ST elevation on his EKG troponin was negative. D-dimer was obtained and was elevated. he was instructed to go to the emergency room for further evaluation and he did not. He has not been seen since this timeframe. He reports the symptoms have not resolved. Positive p.o. intake. No nausea vomiting. Related Data Home Medications Medication Instructions Recorded Confirmed diltiazem HCl 240 mg PO QPM 05/17/18 05/17/18 tizanidine 4 mg PO Q6-8H PRN 05/17/18 05/17/18 trazodone 50 mg PO BEDTIME 05/17/18 05/17/18 Allergies Allergy/AdvReac Type Severity Reaction Status Date / Time No Known Drug Allergies Allergy Verified 05/17/18 17:42 Review of Systems <DEV Spear - Last Filed: 05/17/18 22:27> Constitutional Denies chills, Reports fever(s), Denies lethargy and Denies weakness Eyes Denies change in vision, Denies eye discharge, Denies irritation and Denies loss of vision ENT Ears, Nose, Mouth, and Throat: Denies change in voice, Denies neck pain, Denies sore throat and Denies throat swelling Cardiovascular Denies chest pain, Denies irregular heart rhythm, Denies lightheadedness, Denies palpitations and Denies orthopnea Comments: Chest pressure Respiratory Reports chest congestion, Reports cough and Denies wheezing Gastrointestinal Gastrointestinal: Denies abdominal pain, Denies change in bowel habits, Denies diarrhea, Denies nausea and Denies vomiting Genitourinary Denies hematuria, Denies flank pain, Denies urinary incontinence and Denies urinary urgency Musculoskeletal Denies neck pain Integumentary/Breasts Denies pruritus, Denies erythema, Denies rash and Denies wounds Neurologic Denies confusion, Denies loss of vision and Denies weakness Psychiatric Denies anxiety, Denies confusion, Denies depression, Denies homicidal ideation and Denies suicidal ideation Endocrine Denies palpitations Allergic/Immunologic Denies urticaria, Denies throat swelling and Denies wheezing Exam <DEV Spear - Last Filed: 05/17/18 22:27> Initial Vital Signs Initial Vital Signs: Vital Signs Temperature 99.5 F 05/17/18 14:20 Pulse Rate 110 H 05/17/18 14:20 Respiratory Rate 24 05/17/18 14:20 Blood Pressure 183/112 H 05/17/18 14:20 Pulse Oximetry 95 05/17/18 14:20 Const General: cooperative and well developed Nutritional Appearance: well nourished Orientation: alert, awake and oriented x3 HENMT Mouth: oral mucosae normal and moist mucous membranes Eyes Conjunctivae: conjunctivae normal Sclera: sclerae normal Pupils: PERRL EOM: EOM intact bilaterally Neck Neck: normal visual inspection, trachea midline, No lymphadenopathy, No midline deformity and No JVD Lymphatic: No lymphedema Resp Effort & Inspection: normal respiratory effort, able to speak in complete sentences, no respiratory distress and no use of accessory muscles Auscultation: not clear to auscultation bilaterally, rales, no rhonchi and no wheezes Cardio Rate: regular rate Rhythm: regular rhythm Heart Sounds: no click, no gallops, no murmurs and no rubs Pulses: normal peripheral pulses Skin General: no rashes or lesions noted, No jaundice and No petechiae Neuro General: alert, oriented x3, gait normal and no focal motor deficits Speech: speech normal <Tayler Alejo DO - Last Filed: 05/18/18 17:18> Initial Vital Signs Initial Vital Signs: Vital Signs Temperature 99.5 F 05/17/18 14:20 Pulse Rate 110 H 05/17/18 14:20 Respiratory Rate 24 05/17/18 14:20 Blood Pressure 183/112 H 05/17/18 14:20 Pulse Oximetry 95 05/17/18 14:20 Course <DEV Spear - Last Filed: 05/17/18 22:27> Orders Ordered: ED Orders 05/18/18 09:21 Consult to Respiratory Therapy Evaluate & Treat Discontinued Medications Hydrocodone Bitart/Acetaminophen ([place] 5/325) 1 tab PO Q12H PRN PRN Reason: Pain, Moderate (4-6) Last Admin: 05/18/18 10:05 Dose: 1 tab Admin: 05/17/18 22:55 Dose: 1 tab Hydrocodone Bitart/Acetaminophen ([place] 5/325) 2 tab PO Q12H PRN PRN Reason: Pain, Severe (7-10) Last Admin: 05/18/18 01:01 Dose: 1 tab Albuterol (Ventolin) 2.5 mg INH NOW ONE Stop: 05/17/18 15:06 Last Admin: 05/17/18 15:53 Dose: 2.5 mg Albuterol/Ipratropium (Duoneb) 3 ml INH NOW ONE Stop: 05/17/18 14:34 Last Admin: 05/17/18 14:35 Dose: 3 ml Albuterol/Ipratropium (Duoneb) 3 ml INH NOW PRN PRN Reason: Shortness Of Breath Or Wheezing Last Admin: 05/18/18 10:03 Dose: 3 ml Diltiazem HCl (Cardizem Cd) 240 mg PO QPM PATRICIA Last Admin: 05/17/18 20:21 Dose: 240 mg Admin: 05/17/18 20:02 Dose: 240 mg Furosemide (Lasix) 40 mg IV NOW ONE Stop: 05/17/18 17:21 Last Admin: 05/17/18 17:30 Dose: 40 mg Sodium Chloride (Normal Saline 0.9%) 1,000 mls @ 1,000 mls/hr IV BOLUS ONE Stop: 05/17/18 16:14 Last Infusion: 05/17/18 17:09 Dose: 0 mls/hr Admin: 05/17/18 15:53 Dose: 1,000 mls/hr Levofloxacin (Levaquin) 750 mg in 150 mls @ 100 mls/hr IV NOW ONE Stop: 05/17/18 18:49 Last Infusion: 05/17/18 17:38 Dose: 100 mls/hr Admin: 05/17/18 17:30 Dose: 100 mls/hr Dextrose/Sodium Chloride (Dextrose 5%-0.9% Ns) 1,000 mls @ 100 mls/hr IV CONT PATRICIA Last Admin: 05/18/18 05:20 Dose: 100 mls/hr Infusion: 05/18/18 05:20 Dose: 100 mls/hr Admin: 05/17/18 19:27 Dose: 100 mls/hr Levofloxacin (Levaquin) 500 mg in 100 mls @ 100 mls/hr IV Q24H [facility] Last Infusion: 05/18/18 10:02 Dose: 0 mls/hr Admin: 05/18/18 09:23 Dose: 100 mls/hr Lorazepam (Ativan) 1 mg IV NOW ONE Stop: 05/18/18 05:29 Last Admin: 05/18/18 05:40 Dose: 1 mg Lorazepam (Ativan) 1 mg IV Q4HR PRN PRN Reason: Anxiety Tizanidine HCl (Zanaflex) 4 mg PO Q6H PRN PRN Reason: Spasms Last Admin: 05/17/18 20:22 Dose: 4 mg Tramadol HCl (Ultram) 50 mg PO NOW ONE Stop: 05/18/18 01:10 Last Admin: 05/18/18 01:19 Dose: 50 mg Trazodone HCl (Desyrel) 50 mg PO BEDTIME [facility] Last Admin: 05/17/18 20:22 Dose: 50 mg Zolpidem Tartrate (Ambien) 10 mg PO BEDTIME PRN PRN Reason: Sleep Last Admin: 05/17/18 22:55 Dose: 10 mg Vital Signs - 8 hr 05/18/18 10:03 Pulse Rate 87 Respiratory Rate 22 Pulse Oximetry 88 L <Tayler Alejo, - Last Filed: 05/18/18 17:18> Orders Ordered: ED Orders 05/18/18 09:21 Consult to Respiratory Therapy Evaluate & Treat Discontinued Medications Hydrocodone Bitart/Acetaminophen ([place] 5/325) 1 tab PO Q12H PRN PRN Reason: Pain, Moderate (4-6) Last Admin: 05/18/18 10:05 Dose: 1 tab Admin: 05/17/18 22:55 Dose: 1 tab Hydrocodone Bitart/Acetaminophen ([place] 5/325) 2 tab PO Q12H PRN PRN Reason: Pain, Severe (7-10) Last Admin: 05/18/18 01:01 Dose: 1 tab Albuterol (Ventolin) 2.5 mg INH NOW ONE Stop: 05/17/18 15:06 Last Admin: 05/17/18 15:53 Dose: 2.5 mg Albuterol/Ipratropium (Duoneb) 3 ml INH NOW ONE Stop: 05/17/18 14:34 Last Admin: 05/17/18 14:35 Dose: 3 ml Albuterol/Ipratropium (Duoneb) 3 ml INH NOW PRN PRN Reason: Shortness Of Breath Or Wheezing Last Admin: 05/18/18 10:03 Dose: 3 ml Diltiazem HCl (Cardizem Cd) 240 mg PO QPM PATRICIA Last Admin: 05/17/18 20:21 Dose: 240 mg Admin: 05/17/18 20:02 Dose: 240 mg Furosemide (Lasix) 40 mg IV NOW ONE Stop: 05/17/18 17:21 Last Admin: 05/17/18 17:30 Dose: 40 mg Sodium Chloride (Normal Saline 0.9%) 1,000 mls @ 1,000 mls/hr IV BOLUS ONE Stop: 05/17/18 16:14 Last Infusion: 05/17/18 17:09 Dose: 0 mls/hr Admin: 05/17/18 15:53 Dose: 1,000 mls/hr Levofloxacin (Levaquin) 750 mg in 150 mls @ 100 mls/hr IV NOW ONE Stop: 05/17/18 18:49 Last Infusion: 05/17/18 17:38 Dose: 100 mls/hr Admin: 05/17/18 17:30 Dose: 100 mls/hr Dextrose/Sodium Chloride (Dextrose 5%-0.9% Ns) 1,000 mls @ 100 mls/hr IV CONT PATRICIA Last Admin: 05/18/18 05:20 Dose: 100 mls/hr Infusion: 05/18/18 05:20 Dose: 100 mls/hr Admin: 05/17/18 19:27 Dose: 100 mls/hr Levofloxacin (Levaquin) 500 mg in 100 mls @ 100 mls/hr IV Q24H PATRICIA Last Infusion: 05/18/18 10:02 Dose: 0 mls/hr Admin: 05/18/18 09:23 Dose: 100 mls/hr Lorazepam (Ativan) 1 mg IV NOW ONE Stop: 05/18/18 05:29 Last Admin: 05/18/18 05:40 Dose: 1 mg Lorazepam (Ativan) 1 mg IV Q4HR PRN PRN Reason: Anxiety Tizanidine HCl (Zanaflex) 4 mg PO Q6H PRN PRN Reason: Spasms Last Admin: 05/17/18 20:22 Dose: 4 mg Tramadol HCl (Ultram) 50 mg PO NOW ONE Stop: 05/18/18 01:10 Last Admin: 05/18/18 01:19 Dose: 50 mg Trazodone HCl (Desyrel) 50 mg PO BEDTIME PATRICIA Last Admin: 05/17/18 20:22 Dose: 50 mg Zolpidem Tartrate (Ambien) 10 mg PO BEDTIME PRN PRN Reason: Sleep Last Admin: 05/17/18 22:55 Dose: 10 mg Vital Signs - 8 hr 05/18/18 10:03 Pulse Rate 87 Respiratory Rate 22 Pulse Oximetry 88 L MDM - SOB/Dyspnea <DEV Spear - Last Filed: 05/17/18 22:27> Lab Data Result diagrams: 05/18/18 05:00 05/17/18 15:15 Lab Results 05/17/18 05/17/18 05/17/18 Range/Units 15:15 15:15 15:15 WBC 7.7 (4.5-11.0) X10^3/uL RBC 3.93 L (4.5-5.9) X10^6/uL Hgb 11.3 L (13.5-17.5) g/dL Hct 33.2 L (41-53) % MCV 84.4 (80-100) fL MCH 28.8 (26-34) PG MCHC 34.1 (30-36) % RDW 12.9 (11.6-14.8) % Plt Count 309 (150-400) X10^3/uL Neut % (Auto) 76.3 H (50-75) % Lymph % (Auto) 13.8 L (25-40) % [place] % (Auto) 8.8 (3-14) % Eos % (Auto) 0.6 L (2-4) % Baso % (Auto) 0.5 (0-2) % Neut # (Auto) 5900 (8094-9540) /uL ESR (0-15) MM/HR PT (10.1-12.7) SECONDS INR (0.9-1.3) APTT (26.4-36.2) SECONDS Sodium 139 (137-145) mmol/L Potassium 3.7 (3.4-5.1) mmol/L Chloride 101 (98-107) mmol/L Carbon Dioxide 28 (22-32) mmol/L BUN 16 (9-20) mg/dL Creatinine 0.80 (0.66-1.25) mg/dL Estimated GFR > 60.0 (>60) mL/min BUN/Creatinine Ratio 20.0 (6-22) Glucose 113 H (70-100) mg/dL Lactate (0.7-2.1) mmol/L Calcium 8.6 (8.4-10.2) mg/dL Total Bilirubin 0.5 (0.2-1.3) mg/dL AST 55 (17-59) IU/L ALT 63 (21-72) IU/L Alkaline Phosphatase 63 (38-126) U/L Total Creatine Kinase (55-170) U/L CK-MB (CK-2) CK-MB (CK-2) Rel Index Troponin I (0.01-0.034) ng/mL C-Reactive Protein (<1.0) mg/dL B-Natriuretic Peptide (<100) Total Protein 6.0 L (6.3-8.2) g/dL Albumin 3.4 L (3.5-5.0) g/dL Globulin 2.6 (1.7-4.1) g/dL Albumin/Globulin Ratio 1.3 (1.0-2.8) Procalcitonin < 0.05 (<0.5) ng/mL Nasal Screen MRSA (PCR) (Negative) Chlamy pneumoniae PCR (Not Detect) Adenovirus (PCR) (Not Detect) B.parapertussis DNA PCR (Not Detect) Coronavirus OC43 (PCR) (Not Detect) Coronavirus HKU1 (PCR) (Not Detect) Coronavirus 229E (PCR) (Not Detect) Coronavirus NL63 (PCR) (Not Detect) HIV 1&2 Antibody (NEGATIVE) Human Metapneumovir PCR (Not Detect) Influenza Type A (PCR) (Not Detect) Influenza Type B (PCR) (Not Detect) M. pneumoniae (PCR) (Not Detect) Parainfluenza 1 (PCR) (Not Detect) Parainfluenza 2 (PCR) (Not Detect) Parainfluenza 3 (PCR) (Not Detect) Parainfluenza 4 (PCR) (Not Detect) RSV (PCR) (Not Detect) Entero/Rhino (PCR) (Not Detect) 05/17/18 05/17/18 05/17/18 Range/Units 15:15 15:15 15:15 WBC (4.5-11.0) X10^3/uL RBC (4.5-5.9) X10^6/uL Hgb (13.5-17.5) g/dL Hct (41-53) % MCV (80-100) fL MCH (26-34) PG MCHC (30-36) % RDW (11.6-14.8) % Plt Count (150-400) X10^3/uL Neut % (Auto) (50-75) % Lymph % (Auto) (25-40) % [place] % (Auto) (3-14) % Eos % (Auto) (2-4) % Baso % (Auto) (0-2) % Neut # (Auto) (2615-3367) /uL ESR (0-15) MM/HR PT (10.1-12.7) SECONDS INR (0.9-1.3) APTT (26.4-36.2) SECONDS Sodium (137-145) mmol/L Potassium (3.4-5.1) mmol/L Chloride (98-107) mmol/L Carbon Dioxide (22-32) mmol/L BUN (9-20) mg/dL Creatinine (0.66-1.25) mg/dL Estimated GFR (>60) mL/min BUN/Creatinine Ratio (6-22) Glucose (70-100) mg/dL Lactate 0.9 (0.7-2.1) mmol/L Calcium (8.4-10.2) mg/dL Total Bilirubin (0.2-1.3) mg/dL AST (17-59) IU/L ALT (21-72) IU/L Alkaline Phosphatase (38-126) U/L Total Creatine Kinase 91 (55-170) U/L CK-MB (CK-2) TNP CK-MB (CK-2) Rel Index TNP Troponin I 0.052 H (0.01-0.034) ng/mL C-Reactive Protein (<1.0) mg/dL B-Natriuretic Peptide 409.0 H (<100) Total Protein (6.3-8.2) g/dL Albumin (3.5-5.0) g/dL Globulin (1.7-4.1) g/dL Albumin/Globulin Ratio (1.0-2.8) Procalcitonin (<0.5) ng/mL Nasal Screen MRSA (PCR) (Negative) Chlamy pneumoniae PCR (Not Detect) Adenovirus (PCR) (Not Detect) B.parapertussis DNA PCR (Not Detect) Coronavirus OC43 (PCR) (Not Detect) Coronavirus HKU1 (PCR) (Not Detect) Coronavirus 229E (PCR) (Not Detect) Coronavirus NL63 (PCR) (Not Detect) HIV 1&2 Antibody (NEGATIVE) Human Metapneumovir PCR (Not Detect) Influenza Type A (PCR) (Not Detect) Influenza Type B (PCR) (Not Detect) M. pneumoniae (PCR) (Not Detect) Parainfluenza 1 (PCR) (Not Detect) Parainfluenza 2 (PCR) (Not Detect) Parainfluenza 3 (PCR) (Not Detect) Parainfluenza 4 (PCR) (Not Detect) RSV (PCR) (Not Detect) Entero/Rhino (PCR) (Not Detect) 05/17/18 05/17/18 05/17/18 Range/Units 19:00 20:02 20:02 WBC (4.5-11.0) X10^3/uL RBC (4.5-5.9) X10^6/uL Hgb (13.5-17.5) g/dL Hct (41-53) % MCV (80-100) fL MCH (26-34) PG MCHC (30-36) % RDW (11.6-14.8) % Plt Count (150-400) X10^3/uL Neut % (Auto) (50-75) % Lymph % (Auto) (25-40) % [place] % (Auto) (3-14) % Eos % (Auto) (2-4) % Baso % (Auto) (0-2) % Neut # (Auto) (3720-6095) /uL ESR (0-15) MM/HR PT 14.5 H (10.1-12.7) SECONDS INR 1.3 (0.9-1.3) APTT 33 (26.4-36.2) SECONDS Sodium (137-145) mmol/L Potassium (3.4-5.1) mmol/L Chloride (98-107) mmol/L Carbon Dioxide (22-32) mmol/L BUN (9-20) mg/dL Creatinine (0.66-1.25) mg/dL Estimated GFR (>60) mL/min BUN/Creatinine Ratio (6-22) Glucose (70-100) mg/dL Lactate (0.7-2.1) mmol/L Calcium (8.4-10.2) mg/dL Total Bilirubin (0.2-1.3) mg/dL AST (17-59) IU/L ALT (21-72) IU/L Alkaline Phosphatase (38-126) U/L Total Creatine Kinase (55-170) U/L CK-MB (CK-2) CK-MB (CK-2) Rel Index Troponin I (0.01-0.034) ng/mL C-Reactive Protein 6.1 H (<1.0) mg/dL B-Natriuretic Peptide (<100) Total Protein (6.3-8.2) g/dL Albumin (3.5-5.0) g/dL Globulin (1.7-4.1) g/dL Albumin/Globulin Ratio (1.0-2.8) Procalcitonin (<0.5) ng/mL Nasal Screen MRSA (PCR) Negative for mrsa (Negative) Chlamy pneumoniae PCR (Not Detect) Adenovirus (PCR) (Not Detect) B.parapertussis DNA PCR (Not Detect) Coronavirus OC43 (PCR) (Not Detect) Coronavirus HKU1 (PCR) (Not Detect) Coronavirus 229E (PCR) (Not Detect) Coronavirus NL63 (PCR) (Not Detect) HIV 1&2 Antibody (NEGATIVE) Human Metapneumovir PCR (Not Detect) Influenza Type A (PCR) (Not Detect) Influenza Type B (PCR) (Not Detect) M. pneumoniae (PCR) (Not Detect) Parainfluenza 1 (PCR) (Not Detect) Parainfluenza 2 (PCR) (Not Detect) Parainfluenza 3 (PCR) (Not Detect) Parainfluenza 4 (PCR) (Not Detect) RSV (PCR) (Not Detect) Entero/Rhino (PCR) (Not Detect) 05/17/18 05/18/18 05/18/18 Range/Units 20:02 05:00 Unknown WBC 6.8 (4.5-11.0) X10^3/uL RBC 3.74 L (4.5-5.9) X10^6/uL Hgb 10.7 L (13.5-17.5) g/dL Hct 31.6 L (41-53) % MCV 84.5 (80-100) fL MCH 28.6 (26-34) PG MCHC 33.9 (30-36) % RDW 13.0 (11.6-14.8) % Plt Count 285 (150-400) X10^3/uL Neut % (Auto) 70.7 (50-75) % Lymph % (Auto) 16.4 L (25-40) % [place] % (Auto) 11.9 (3-14) % Eos % (Auto) 0.6 L (2-4) % Baso % (Auto) 0.4 (0-2) % Neut # (Auto) 4800 (1571-1786) /uL ESR 42 H (0-15) MM/HR PT (10.1-12.7) SECONDS INR (0.9-1.3) APTT (26.4-36.2) SECONDS Sodium (137-145) mmol/L Potassium (3.4-5.1) mmol/L Chloride (98-107) mmol/L Carbon Dioxide (22-32) mmol/L BUN (9-20) mg/dL Creatinine (0.66-1.25) mg/dL Estimated GFR (>60) mL/min BUN/Creatinine Ratio (6-22) Glucose (70-100) mg/dL Lactate (0.7-2.1) mmol/L Calcium (8.4-10.2) mg/dL Total Bilirubin (0.2-1.3) mg/dL AST (17-59) IU/L ALT (21-72) IU/L Alkaline Phosphatase (38-126) U/L Total Creatine Kinase (55-170) U/L CK-MB (CK-2) CK-MB (CK-2) Rel Index Troponin I (0.01-0.034) ng/mL C-Reactive Protein (<1.0) mg/dL B-Natriuretic Peptide 440.0 H (<100) Total Protein (6.3-8.2) g/dL Albumin (3.5-5.0) g/dL Globulin (1.7-4.1) g/dL Albumin/Globulin Ratio (1.0-2.8) Procalcitonin (<0.5) ng/mL Nasal Screen MRSA (PCR) (Negative) Chlamy pneumoniae PCR (Not Detect) Adenovirus (PCR) (Not Detect) B.parapertussis DNA PCR (Not Detect) Coronavirus OC43 (PCR) (Not Detect) Coronavirus HKU1 (PCR) (Not Detect) Coronavirus 229E (PCR) (Not Detect) Coronavirus NL63 (PCR) (Not Detect) HIV 1&2 Antibody Negative (NEGATIVE) Human Metapneumovir PCR (Not Detect) Influenza Type A (PCR) (Not Detect) Influenza Type B (PCR) (Not Detect) M. pneumoniae (PCR) (Not Detect) Parainfluenza 1 (PCR) (Not Detect) Parainfluenza 2 (PCR) (Not Detect) Parainfluenza 3 (PCR) (Not Detect) Parainfluenza 4 (PCR) (Not Detect) RSV (PCR) (Not Detect) Entero/Rhino (PCR) (Not Detect) 05/18/18 Range/Units Unknown WBC (4.5-11.0) X10^3/uL RBC (4.5-5.9) X10^6/uL Hgb (13.5-17.5) g/dL Hct (41-53) % MCV (80-100) fL MCH (26-34) PG MCHC (30-36) % RDW (11.6-14.8) % Plt Count (150-400) X10^3/uL Neut % (Auto) (50-75) % Lymph % (Auto) (25-40) % [place] % (Auto) (3-14) % Eos % (Auto) (2-4) % Baso % (Auto) (0-2) % Neut # (Auto) (6825-3926) /uL ESR (0-15) MM/HR PT (10.1-12.7) SECONDS INR (0.9-1.3) APTT (26.4-36.2) SECONDS Sodium (137-145) mmol/L Potassium (3.4-5.1) mmol/L Chloride (98-107) mmol/L Carbon Dioxide (22-32) mmol/L BUN (9-20) mg/dL Creatinine (0.66-1.25) mg/dL Estimated GFR (>60) mL/min BUN/Creatinine Ratio (6-22) Glucose (70-100) mg/dL Lactate (0.7-2.1) mmol/L Calcium (8.4-10.2) mg/dL Total Bilirubin (0.2-1.3) mg/dL AST (17-59) IU/L ALT (21-72) IU/L Alkaline Phosphatase (38-126) U/L Total Creatine Kinase (55-170) U/L CK-MB (CK-2) CK-MB (CK-2) Rel Index Troponin I (0.01-0.034) ng/mL C-Reactive Protein (<1.0) mg/dL B-Natriuretic Peptide (<100) Total Protein (6.3-8.2) g/dL Albumin (3.5-5.0) g/dL Globulin (1.7-4.1) g/dL Albumin/Globulin Ratio (1.0-2.8) Procalcitonin (<0.5) ng/mL Nasal Screen MRSA (PCR) (Negative) Chlamy pneumoniae PCR Not detected (Not Detect) Adenovirus (PCR) Not detected (Not Detect) B.parapertussis DNA PCR Not detected (Not Detect) Coronavirus OC43 (PCR) Not detected (Not Detect) Coronavirus HKU1 (PCR) Not detected (Not Detect) Coronavirus 229E (PCR) Not detected (Not Detect) Coronavirus NL63 (PCR) Not detected (Not Detect) HIV 1&2 Antibody (NEGATIVE) Human Metapneumovir PCR Not detected (Not Detect) Influenza Type A (PCR) Not detected (Not Detect) Influenza Type B (PCR) Not detected (Not Detect) M. pneumoniae (PCR) Not detected (Not Detect) Parainfluenza 1 (PCR) Not detected (Not Detect) Parainfluenza 2 (PCR) Not detected (Not Detect) Parainfluenza 3 (PCR) Not detected (Not Detect) Parainfluenza 4 (PCR) Not detected (Not Detect) RSV (PCR) Not detected (Not Detect) Entero/Rhino (PCR) Not detected (Not Detect) Imaging Data Chest x-ray: Radiologist's impression: [address] [place] [id number] XRay Report Signed Patient: Al Velez EMR#: [id number] : 1970Acct:[id number] Age/Sex: 47 / MDate of Service: 05/17/18 Loc: ED Accession Number: [id number] Procedure: XR chest 2V Ordering Provider: Tayler Alejo D.O. PROCEDURE: XR CHEST 2V INDICATIONS: short of breath, cough TECHNIQUE: 2 views of the chest were acquired. COMPARISON: None. FINDINGS: Surgical changes and devices: None. Lungs and pleura: Centrilobular and interstitial infiltrates are seen, which are more prominent on the right side than on the left. No pneumothorax is seen. No large pleural effusion. Mediastinum: Mediastinal contours are normal. Heart size is normal. Bones and chest wall: No suspicious bony abnormalities. Soft tissues appear unremarkable. IMPRESSION: Central alveolar and interstitial type infiltrates are seen. This is felt most likely to be related to infection, although differential diagnosis includes fluid overload and inflammatory change. If it would be helpful for clinical management decision making, please consider a dedicated chest CT with contrast for further evaluation. Dictated by: Dusty Veronica M.D. on 05/17/2018 at 13:55 Approved by: Dusty Veronica M.D. on 05/17/2018 at 13:56 CT scan - chest: Radiologist's impression: [address] [id number] [address] Scan Report Signed Patient: Al Velez EMR#: [id number] : 1970Acct:[id number] Age/Sex: 47 / MDate of Service: 05/17/18 Loc: ED Accession Number: [id number] Procedure: CT angio chest PE protocol Ordering Provider: Saad Chauhan PROCEDURE: CT ANGIO CHEST PE PROTOCOL INDICATIONS: chest pressure and tachycardia TECHNIQUE: After the administration of intravenous contrast, 2 mm thick sections acquired from the pulmonary apices to the posterior costophrenic angles. 3-dimensional maximum intensity projection (MIP) coronal and sagittal reformats were then acquired through the thorax. For radiation dose reduction, the following was used: automated exposure control, adjustment of mA and/or kV according to patient size. COMPARISON: None. FINDINGS: Image quality: Excellent. Pulmonary arteries: Pulmonary arteries are normal in size, and demonstrate no intraluminal filling defects to suggest central pulmonary embolism. Lungs and pleura: Lungs are abnormal with bilateral patchy moderately severe pneumonia, slightly greater on the right than the left. There are bilateral free-flowing pleural effusions and no pneumothorax. Central and peripheral airways are patent. Mediastinum: Heart size is normal, without pericardial effusion. No discrete mediastinal or hilar adenopathy but the radiodensity of the fatty soft tissues within the right hilum and middle mediastinum is higher than is usually seen and this may reflect mediastinal edema versus confluent adenopathy.. Thoracic aorta is normal in caliber and enhancement. Esophagus is normal in caliber, without hiatal hernia. Bones and chest wall: No suspicious bony lesions. Ribs and thoracic spine appear intact throughout. Thyroid gland appears normal where well visualized. No axillary or supraclavicular adenopathy. Abdomen: Visualized upper abdominal solid organs appear normal in the early arterial phase of enhancement. The gallbladder contains calcified 1 cm gallstones, numerous and filling the gallbladder lumen. Biliary obstruction is not associated. IMPRESSION: No pulmonary embolus found. Severe bilateral pneumonia slightly greater on the right than the left. Bilateral simple appearing water density free-flowing effusions. Mediastinal and right hilar edema versus confluent adenopathy. The gallbladder is stone filled but does not show evidence of acute cholecystitis or biliary obstruction. After the acute disease process is managed surgical consultation for consideration of cholecystectomy is recommended. Dictated by: Yvon Brown M.D. on 05/17/2018 at 16:43 Approved by: Yvon Brown M.D. on 05/17/2018 at 16:46 MDM Narrative Medical decision making narrative: CBC shows normal white count. CBC also shows mild anemia otherwise unremarkable. Lactate was obtained was negative. Procalcitonin was obtained was also negative. BnP was obtained and was elevated at 409. troponin was indeterminate at 0.052 chest x-ray shows areas of consolidation bilaterally greater to the right than the left. CT scan PE protocol was obtained and was negative for PE. CT does show significant bilateral pneumonia, CT also shows incidental finding of a gallbladder stones no acute signs of cholecystitis. he is prescribed Levaquin in the emergency room. Blood cultures are pending. Due to elevated BNP Lasix is ordered. <Tayler Mary Ann Alejo, DO - Last Filed: 05/18/18 17:18> Lab Data Lab Results 05/17/18 05/17/18 05/17/18 Range/Units 15:15 15:15 15:15 WBC 7.7 (4.5-11.0) X10^3/uL RBC 3.93 L (4.5-5.9) X10^6/uL Hgb 11.3 L (13.5-17.5) g/dL Hct 33.2 L (41-53) % MCV 84.4 (80-100) fL MCH 28.8 (26-34) PG MCHC 34.1 (30-36) % RDW 12.9 (11.6-14.8) % Plt Count 309 (150-400) X10^3/uL Neut % (Auto) 76.3 H (50-75) % Lymph % (Auto) 13.8 L (25-40) % [place] % (Auto) 8.8 (3-14) % Eos % (Auto) 0.6 L (2-4) % Baso % (Auto) 0.5 (0-2) % Neut # (Auto) 5900 (3658-3082) /uL ESR (0-15) MM/HR PT (10.1-12.7) SECONDS INR (0.9-1.3) APTT (26.4-36.2) SECONDS Sodium 139 (137-145) mmol/L Potassium 3.7 (3.4-5.1) mmol/L Chloride 101 (98-107) mmol/L Carbon Dioxide 28 (22-32) mmol/L BUN 16 (9-20) mg/dL Creatinine 0.80 (0.66-1.25) mg/dL Estimated GFR > 60.0 (>60) mL/min BUN/Creatinine Ratio 20.0 (6-22) Glucose 113 H (70-100) mg/dL Lactate (0.7-2.1) mmol/L Calcium 8.6 (8.4-10.2) mg/dL Total Bilirubin 0.5 (0.2-1.3) mg/dL AST 55 (17-59) IU/L ALT 63 (21-72) IU/L Alkaline Phosphatase 63 (38-126) U/L Total Creatine Kinase (55-170) U/L CK-MB (CK-2) CK-MB (CK-2) Rel Index Troponin I (0.01-0.034) ng/mL C-Reactive Protein (<1.0) mg/dL B-Natriuretic Peptide (<100) Total Protein 6.0 L (6.3-8.2) g/dL Albumin 3.4 L (3.5-5.0) g/dL Globulin 2.6 (1.7-4.1) g/dL Albumin/Globulin Ratio 1.3 (1.0-2.8) Procalcitonin < 0.05 (<0.5) ng/mL Nasal Screen MRSA (PCR) (Negative) Chlamy pneumoniae PCR (Not Detect) Adenovirus (PCR) (Not Detect) B.parapertussis DNA PCR (Not Detect) Coronavirus OC43 (PCR) (Not Detect) Coronavirus HKU1 (PCR) (Not Detect) Coronavirus 229E (PCR) (Not Detect) Coronavirus NL63 (PCR) (Not Detect) HIV 1&2 Antibody (NEGATIVE) Human Metapneumovir PCR (Not Detect) Influenza Type A (PCR) (Not Detect) Influenza Type B (PCR) (Not Detect) M. pneumoniae (PCR) (Not Detect) Parainfluenza 1 (PCR) (Not Detect) Parainfluenza 2 (PCR) (Not Detect) Parainfluenza 3 (PCR) (Not Detect) Parainfluenza 4 (PCR) (Not Detect) RSV (PCR) (Not Detect) Entero/Rhino (PCR) (Not Detect) 05/17/18 05/17/18 05/17/18 Range/Units 15:15 15:15 15:15 WBC (4.5-11.0) X10^3/uL RBC (4.5-5.9) X10^6/uL Hgb (13.5-17.5) g/dL Hct (41-53) % MCV (80-100) fL MCH (26-34) PG MCHC (30-36) % RDW (11.6-14.8) % Plt Count (150-400) X10^3/uL Neut % (Auto) (50-75) % Lymph % (Auto) (25-40) % [place] % (Auto) (3-14) % Eos % (Auto) (2-4) % Baso % (Auto) (0-2) % Neut # (Auto) (9950-4254) /uL ESR (0-15) MM/HR PT (10.1-12.7) SECONDS INR (0.9-1.3) APTT (26.4-36.2) SECONDS Sodium (137-145) mmol/L Potassium (3.4-5.1) mmol/L Chloride (98-107) mmol/L Carbon Dioxide (22-32) mmol/L BUN (9-20) mg/dL Creatinine (0.66-1.25) mg/dL Estimated GFR (>60) mL/min BUN/Creatinine Ratio (6-22) Glucose (70-100) mg/dL Lactate 0.9 (0.7-2.1) mmol/L Calcium (8.4-10.2) mg/dL Total Bilirubin (0.2-1.3) mg/dL AST (17-59) IU/L ALT (21-72) IU/L Alkaline Phosphatase (38-126) U/L Total Creatine Kinase 91 (55-170) U/L CK-MB (CK-2) TNP CK-MB (CK-2) Rel Index TNP Troponin I 0.052 H (0.01-0.034) ng/mL C-Reactive Protein (<1.0) mg/dL B-Natriuretic Peptide 409.0 H (<100) Total Protein (6.3-8.2) g/dL Albumin (3.5-5.0) g/dL Globulin (1.7-4.1) g/dL Albumin/Globulin Ratio (1.0-2.8) Procalcitonin (<0.5) ng/mL Nasal Screen MRSA (PCR) (Negative) Chlamy pneumoniae PCR (Not Detect) Adenovirus (PCR) (Not Detect) B.parapertussis DNA PCR (Not Detect) Coronavirus OC43 (PCR) (Not Detect) Coronavirus HKU1 (PCR) (Not Detect) Coronavirus 229E (PCR) (Not Detect) Coronavirus NL63 (PCR) (Not Detect) HIV 1&2 Antibody (NEGATIVE) Human Metapneumovir PCR (Not Detect) Influenza Type A (PCR) (Not Detect) Influenza Type B (PCR) (Not Detect) M. pneumoniae (PCR) (Not Detect) Parainfluenza 1 (PCR) (Not Detect) Parainfluenza 2 (PCR) (Not Detect) Parainfluenza 3 (PCR) (Not Detect) Parainfluenza 4 (PCR) (Not Detect) RSV (PCR) (Not Detect) Entero/Rhino (PCR) (Not Detect) 05/17/18 05/17/18 05/17/18 Range/Units 19:00 20:02 20:02 WBC (4.5-11.0) X10^3/uL RBC (4.5-5.9) X10^6/uL Hgb (13.5-17.5) g/dL Hct (41-53) % MCV (80-100) fL MCH (26-34) PG MCHC (30-36) % RDW (11.6-14.8) % Plt Count (150-400) X10^3/uL Neut % (Auto) (50-75) % Lymph % (Auto) (25-40) % [place] % (Auto) (3-14) % Eos % (Auto) (2-4) % Baso % (Auto) (0-2) % Neut # (Auto) (5321-9782) /uL ESR (0-15) MM/HR PT 14.5 H (10.1-12.7) SECONDS INR 1.3 (0.9-1.3) APTT 33 (26.4-36.2) SECONDS Sodium (137-145) mmol/L Potassium (3.4-5.1) mmol/L Chloride (98-107) mmol/L Carbon Dioxide (22-32) mmol/L BUN (9-20) mg/dL Creatinine (0.66-1.25) mg/dL Estimated GFR (>60) mL/min BUN/Creatinine Ratio (6-22) Glucose (70-100) mg/dL Lactate (0.7-2.1) mmol/L Calcium (8.4-10.2) mg/dL Total Bilirubin (0.2-1.3) mg/dL AST (17-59) IU/L ALT (21-72) IU/L Alkaline Phosphatase (38-126) U/L Total Creatine Kinase (55-170) U/L CK-MB (CK-2) CK-MB (CK-2) Rel Index Troponin I (0.01-0.034) ng/mL C-Reactive Protein 6.1 H (<1.0) mg/dL B-Natriuretic Peptide (<100) Total Protein (6.3-8.2) g/dL Albumin (3.5-5.0) g/dL Globulin (1.7-4.1) g/dL Albumin/Globulin Ratio (1.0-2.8) Procalcitonin (<0.5) ng/mL Nasal Screen MRSA (PCR) Negative for mrsa (Negative) Chlamy pneumoniae PCR (Not Detect) Adenovirus (PCR) (Not Detect) B.parapertussis DNA PCR (Not Detect) Coronavirus OC43 (PCR) (Not Detect) Coronavirus HKU1 (PCR) (Not Detect) Coronavirus 229E (PCR) (Not Detect) Coronavirus NL63 (PCR) (Not Detect) HIV 1&2 Antibody (NEGATIVE) Human Metapneumovir PCR (Not Detect) Influenza Type A (PCR) (Not Detect) Influenza Type B (PCR) (Not Detect) M. pneumoniae (PCR) (Not Detect) Parainfluenza 1 (PCR) (Not Detect) Parainfluenza 2 (PCR) (Not Detect) Parainfluenza 3 (PCR) (Not Detect) Parainfluenza 4 (PCR) (Not Detect) RSV (PCR) (Not Detect) Entero/Rhino (PCR) (Not Detect) 05/17/18 05/18/18 05/18/18 Range/Units 20:02 05:00 Unknown WBC 6.8 (4.5-11.0) X10^3/uL RBC 3.74 L (4.5-5.9) X10^6/uL Hgb 10.7 L (13.5-17.5) g/dL Hct 31.6 L (41-53) % MCV 84.5 (80-100) fL MCH 28.6 (26-34) PG MCHC 33.9 (30-36) % RDW 13.0 (11.6-14.8) % Plt Count 285 (150-400) X10^3/uL Neut % (Auto) 70.7 (50-75) % Lymph % (Auto) 16.4 L (25-40) % [place] % (Auto) 11.9 (3-14) % Eos % (Auto) 0.6 L (2-4) % Baso % (Auto) 0.4 (0-2) % Neut # (Auto) 4800 (6742-5834) /uL ESR 42 H (0-15) MM/HR PT (10.1-12.7) SECONDS INR (0.9-1.3) APTT (26.4-36.2) SECONDS Sodium (137-145) mmol/L Potassium (3.4-5.1) mmol/L Chloride (98-107) mmol/L Carbon Dioxide (22-32) mmol/L BUN (9-20) mg/dL Creatinine (0.66-1.25) mg/dL Estimated GFR (>60) mL/min BUN/Creatinine Ratio (6-22) Glucose (70-100) mg/dL Lactate (0.7-2.1) mmol/L Calcium (8.4-10.2) mg/dL Total Bilirubin (0.2-1.3) mg/dL AST (17-59) IU/L ALT (21-72) IU/L Alkaline Phosphatase (38-126) U/L Total Creatine Kinase (55-170) U/L CK-MB (CK-2) CK-MB (CK-2) Rel Index Troponin I (0.01-0.034) ng/mL C-Reactive Protein (<1.0) mg/dL B-Natriuretic Peptide 440.0 H (<100) Total Protein (6.3-8.2) g/dL Albumin (3.5-5.0) g/dL Globulin (1.7-4.1) g/dL Albumin/Globulin Ratio (1.0-2.8) Procalcitonin (<0.5) ng/mL Nasal Screen MRSA (PCR) (Negative) Chlamy pneumoniae PCR (Not Detect) Adenovirus (PCR) (Not Detect) B.parapertussis DNA PCR (Not Detect) Coronavirus OC43 (PCR) (Not Detect) Coronavirus HKU1 (PCR) (Not Detect) Coronavirus 229E (PCR) (Not Detect) Coronavirus NL63 (PCR) (Not Detect) HIV 1&2 Antibody Negative (NEGATIVE) Human Metapneumovir PCR (Not Detect) Influenza Type A (PCR) (Not Detect) Influenza Type B (PCR) (Not Detect) M. pneumoniae (PCR) (Not Detect) Parainfluenza 1 (PCR) (Not Detect) Parainfluenza 2 (PCR) (Not Detect) Parainfluenza 3 (PCR) (Not Detect) Parainfluenza 4 (PCR) (Not Detect) RSV (PCR) (Not Detect) Entero/Rhino (PCR) (Not Detect) 05/18/18 Range/Units Unknown WBC (4.5-11.0) X10^3/uL RBC (4.5-5.9) X10^6/uL Hgb (13.5-17.5) g/dL Hct (41-53) % MCV (80-100) fL MCH (26-34) PG MCHC (30-36) % RDW (11.6-14.8) % Plt Count (150-400) X10^3/uL Neut % (Auto) (50-75) % Lymph % (Auto) (25-40) % [place] % (Auto) (3-14) % Eos % (Auto) (2-4) % Baso % (Auto) (0-2) % Neut # (Auto) (4497-8491) /uL ESR (0-15) MM/HR PT (10.1-12.7) SECONDS INR (0.9-1.3) APTT (26.4-36.2) SECONDS Sodium (137-145) mmol/L Potassium (3.4-5.1) mmol/L Chloride (98-107) mmol/L Carbon Dioxide (22-32) mmol/L BUN (9-20) mg/dL Creatinine (0.66-1.25) mg/dL Estimated GFR (>60) mL/min BUN/Creatinine Ratio (6-22) Glucose (70-100) mg/dL Lactate (0.7-2.1) mmol/L Calcium (8.4-10.2) mg/dL Total Bilirubin (0.2-1.3) mg/dL AST (17-59) IU/L ALT (21-72) IU/L Alkaline Phosphatase (38-126) U/L Total Creatine Kinase (55-170) U/L CK-MB (CK-2) CK-MB (CK-2) Rel Index Troponin I (0.01-0.034) ng/mL C-Reactive Protein (<1.0) mg/dL B-Natriuretic Peptide (<100) Total Protein (6.3-8.2) g/dL Albumin (3.5-5.0) g/dL Globulin (1.7-4.1) g/dL Albumin/Globulin Ratio (1.0-2.8) Procalcitonin (<0.5) ng/mL Nasal Screen MRSA (PCR) (Negative) Chlamy pneumoniae PCR Not detected (Not Detect) Adenovirus (PCR) Not detected (Not Detect) B.parapertussis DNA PCR Not detected (Not Detect) Coronavirus OC43 (PCR) Not detected (Not Detect) Coronavirus HKU1 (PCR) Not detected (Not Detect) Coronavirus 229E (PCR) Not detected (Not Detect) Coronavirus NL63 (PCR) Not detected (Not Detect) HIV 1&2 Antibody (NEGATIVE) Human Metapneumovir PCR Not detected (Not Detect) Influenza Type A (PCR) Not detected (Not Detect) Influenza Type B (PCR) Not detected (Not Detect) M. pneumoniae (PCR) Not detected (Not Detect) Parainfluenza 1 (PCR) Not detected (Not Detect) Parainfluenza 2 (PCR) Not detected (Not Detect) Parainfluenza 3 (PCR) Not detected (Not Detect) Parainfluenza 4 (PCR) Not detected (Not Detect) RSV (PCR) Not detected (Not Detect) Entero/Rhino (PCR) Not detected (Not Detect) Discharge Plan Departure Patient Disposition: Admitted As Inpatient Clinical Impression: Pneumonia, Congestive heart failure Discharge Date/Time: 05/17/18 17:41 Interventions: ED Discharge Assessment Last Done: 05/17/18 17:39 Admit Date/Time: 05/17/18 17:35 Admit Provider: Del Jaime <Tayler Alejo DO - Last Filed: 05/18/18 17:18> Cosign ED Attending Cosleonoraature Attestation: I was immediately available in the department for consultation. This documentation has been reviewed and I agree with assessment and plan. Supervised by Tayler Alejo DO
[2018-05-17 17:45] VITALS: BP 155/106; PULSE 106; RESP 22; TEMP 37.7; O2SAT 98
[2018-05-17 18:17] VITALS: BMI 29.2
--- NOTE | 2018-05-17 18:37 | PM.HP.1 ---
History of Present Illness Date Patient Seen: 05/17/18 Time Patient Seen: 16:12 Chief complaint: shortness of breath, coughing blood up Narrative: This is a 47-year-old male who I have seen in the emergency department [facility] for an apparent pulmonary hemorrhage condition. 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 About 5 days ago he went to the urgent care and was recommended to go to the emergency department but declined. He finally comes in [facility] reporting cough with sputum that is bloody and fevers up to 99? along with shortness of breath. 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 He has never had bloody sputum before. There is no family history of pulmonary hemorrhage or other conditions such as Graciela's or Goodpasture's. The CXR shows large central pulmonary infiltrates, right more than left, C/W Pulmonary Hemorrhage. His white count is normal and his procalcitonin is normal. The BNP is slightly elevated but not enough to explain the dramatic appearance. The CT scan is read as showing no PE but showing severe pneumonia patterns. The hemoglobin is 11.3. He is now being transferred to the intensive care unit. Patient History Medical History Hypertension (Acute) Family & Social History Social History: Family history--no history of autoimmune condition related to chronic kidney or lung disease. household members spouse Prior Living Arrangements House Safety & Behavioral: Feels Safe in Current Yes Environment Been Physically Hurt or No Threatened By a Person Suicidal Ideation Description None Suicide Plan Description No Plan Tobacco & Substance use: Tobacco type cigarettes Smoking Status Current some day smoker Smoking packs per day 2 alcohol intake former Substance Use Type marijuana Meds Home Medications Medication Instructions Recorded Confirmed Type diltiazem HCl 240 mg PO QPM 05/17/18 05/17/18 History tizanidine 4 mg PO Q6-8H PRN 05/17/18 05/17/18 History trazodone 50 mg PO BEDTIME 05/17/18 05/17/18 History Allergies Allergy/AdvReac Type Severity Reaction Status Date / Time No Known Drug Allergies Allergy Verified 05/17/18 17:42 Review of Systems Review of Systems No vomiting, nausea, abdominal pain, rectal bleeding, dysuria, joint pain, rash, seizures, headaches, new allergies, trouble walking, trouble talking, chills, sweating. All systems reviewed & are unremarkable except as noted in HPI and below Exam Vital Signs (past 8 hours): - 05/17/18 14:20 05/17/18 14:35 05/17/18 14:45 Temperature 99.5 F Pulse Rate 110 H Respiratory Rate 24 Blood Pressure 183/112 H Pulse Oximetry 95 97 97 05/17/18 17:45 Temperature 99.8 F H Pulse Rate 106 H Respiratory Rate 22 Blood Pressure 155/106 H Pulse Oximetry 98 Oxygen Delivery Method Room Air Narrative Exam Narrative: Alert and oriented x3. Somewhat disorganized historical patterns. No apparent distress. He shows me a sputum specimen that is pink. There is no copious hemorrhaging seen. Pupils are equally round and reactive to light and accommodation. Extraocular muscles are intact. Sclerae are pink and nonicteric. Throat looks normal, No lymph nodes are felt head or supraclavicular area. The anterior cervical chain has some irregularity suggestive of lymphadenopathy. There is no thyromegaly and there is no significant jugular venous distention. Heart is regular rate and rhythm without murmur. Lungs have wheezing bilaterally. Abdomen is soft, bowel sounds positive, nontender, no organomegaly. Extremities have no ankle edema. Skin has no rash or jaundice. Neuro exam is notable for normal reflexes, cranial nerves 2-12 tested tach, motor 5/5 throughout, no lateralizing deficit or balance problems. Objective Labs Result Diagrams: 05/17/18 15:15 05/17/18 15:15 Labs: Laboratory Results - last 24 hr 05/17/18 05/17/18 05/17/18 15:15 15:15 15:15 WBC 7.7 RBC 3.93 L Hgb 11.3 L Hct 33.2 L MCV 84.4 MCH 28.8 MCHC 34.1 RDW 12.9 Plt Count 309 Neut % (Auto) 76.3 H Lymph % (Auto) 13.8 L [place] % (Auto) 8.8 Eos % (Auto) 0.6 L Baso % (Auto) 0.5 Neut # (Auto) 5900 Sodium 139 Potassium 3.7 Chloride 101 Carbon Dioxide 28 BUN 16 Creatinine 0.80 Estimated GFR > 60.0 BUN/Creatinine Ratio 20.0 Glucose 113 H Lactate Calcium 8.6 Total Bilirubin 0.5 AST 55 ALT 63 Alkaline Phosphatase 63 Total Creatine Kinase CK-MB (CK-2) CK-MB (CK-2) Rel Index Troponin I B-Natriuretic Peptide Total Protein 6.0 L Albumin 3.4 L Globulin 2.6 Albumin/Globulin Ratio 1.3 Procalcitonin < 0.05 05/17/18 05/17/18 05/17/18 15:15 15:15 15:15 WBC RBC Hgb Hct MCV MCH MCHC RDW Plt Count Neut % (Auto) Lymph % (Auto) [place] % (Auto) Eos % (Auto) Baso % (Auto) Neut # (Auto) Sodium Potassium Chloride Carbon Dioxide BUN Creatinine Estimated GFR BUN/Creatinine Ratio Glucose Lactate 0.9 Calcium Total Bilirubin AST ALT Alkaline Phosphatase Total Creatine Kinase 91 CK-MB (CK-2) TNP CK-MB (CK-2) Rel Index TNP Troponin I 0.052 H B-Natriuretic Peptide 409.0 H Total Protein Albumin Globulin Albumin/Globulin Ratio Procalcitonin Assessment & Plan Plan: Assessment/Plan Narrative: 1 - Acute Pulmonary Hemorrhage - The CXR is very clearly a hemorrhage pattern, which is also confirmed by his hemoptysis complaint and the observed bloody sputum. - With the normal Procalcitonin and WBC this is almost certainly not a bacterial pneumonia - With the BNP of 409 congestive heart failure needs to be considered but the amount of infiltrative pattern seen on the chest x-ray would be expected to have caused a much higher BNP if this was CHF. - with this ongoing hemoptysis and very probable pulmonary hemorrhage he needs to be very soon in a location where a office auditor can see him and assess him with possible bronchoscopy etc. - he will be transferred to our intensive care unit overnight while we wait for transfer to [facility]. Unfortunately this is the time a year when most of our tertiary facilities with around the clock pulmonary coverage are over flowing with patients. - Continue Oxygen and follow CBC/CXR results if he remains here. 2 - Possible Pneumonia/CHF - Received 1 dose of Levaquin in the ED tonight - Procalcitonin is normal and the WBC is 7.7 - The BNP is slightly elevated, probably from pulmonary HTN caused by the hemorrhage - He received a dose of Lasix in the ED tonight. - This is not very likely to be Flash Pulmonary Edema so we will continue a gentle IV hydration rate. 3 - Hypertension - Continue Diltiazem.
--- NOTE | 2018-05-17 18:41 | P.HP_ITS ---
History of Present Illness Date Patient Seen: 05/17/18 Time Patient Seen: 16:12 Chief complaint: shortness of breath, coughing blood up Narrative: This is a 47-year-old male who I have seen in the emergency department [facility] for an apparent pulmonary hemorrhage condition. 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 About 5 days ago he went to the urgent care and was recommended to go to the emergency department but declined. He finally comes in [facility] reporting cough with sputum that is bloody and fevers up to 99? along with shortness of breath. 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 He has never had bloody sputum before. There is no family history of pulmonary hemorrhage or other conditions such as Graciela's or Goodpasture's. The CXR shows large central pulmonary infiltrates, right more than left, C/W Pulmonary Hemorrhage. His white count is normal and his procalcitonin is normal. The BNP is slightly elevated but not enough to explain the dramatic appearance. The CT scan is read as showing no PE but showing severe pneumonia patterns. The hemoglobin is 11.3. He is now being transferred to the intensive care unit. Patient History Medical History Hypertension (Acute) Family & Social History Social History: Family history--no history of autoimmune condition related to chronic kidney or lung disease. household members spouse Prior Living Arrangements House Safety & Behavioral: Feels Safe in Current Yes Environment Been Physically Hurt or No Threatened By a Person Suicidal Ideation Description None Suicide Plan Description No Plan Tobacco & Substance use: Tobacco type cigarettes Smoking Status Current some day smoker Smoking packs per day 2 alcohol intake former Substance Use Type marijuana Meds Home Medications Medication Instructions Recorded Confirmed Type diltiazem HCl 240 mg PO QPM 05/17/18 05/17/18 History tizanidine 4 mg PO Q6-8H PRN 05/17/18 05/17/18 History trazodone 50 mg PO BEDTIME 05/17/18 05/17/18 History Allergies Allergy/AdvReac Type Severity Reaction Status Date / Time No Known Drug Allergies Allergy Verified 05/17/18 17:42 Review of Systems Review of Systems No vomiting, nausea, abdominal pain, rectal bleeding, dysuria, joint pain, rash , seizures, headaches, new allergies, trouble walking, trouble talking, chills, sweating. All systems reviewed & are unremarkable except as noted in HPI and below Exam Vital Signs (past 8 hours): - 05/17/18 14:20 05/17/18 14:35 05/17/18 14:45 Temperature 99.5 F Pulse Rate 110 H Respiratory Rate 24 Blood Pressure 183/112 H Pulse Oximetry 95 97 97 05/17/18 17:45 Temperature 99.8 F H Pulse Rate 106 H Respiratory Rate 22 Blood Pressure 155/106 H Pulse Oximetry 98 Oxygen Delivery Method Room Air Narrative Exam Narrative: Alert and oriented x3. Somewhat disorganized historical patterns. No apparent distress. He shows me a sputum specimen that is pink. There is no copious hemorrhaging seen. Pupils are equally round and reactive to light and accommodation. Extraocular muscles are intact. Sclerae are pink and nonicteric. Throat looks normal, No lymph nodes are felt head or supraclavicular area. The anterior cervical chain has some irregularity suggestive of lymphadenopathy. There is no thyromegaly and there is no significant jugular venous distention. Heart is regular rate and rhythm without murmur. Lungs have wheezing bilaterally. Abdomen is soft, bowel sounds positive, nontender, no organomegaly. Extremities have no ankle edema. Skin has no rash or jaundice. Neuro exam is notable for normal reflexes, cranial nerves 2-12 tested tach, motor 5/5 throughout, no lateralizing deficit or balance problems. Objective Labs Result Diagrams: 05/17/18 15:15 05/17/18 15:15 Labs: Laboratory Results - last 24 hr 05/17/18 05/17/18 05/17/18 15:15 15:15 15:15 WBC 7.7 RBC 3.93 L Hgb 11.3 L Hct 33.2 L MCV 84.4 MCH 28.8 MCHC 34.1 RDW 12.9 Plt Count 309 Neut % (Auto) 76.3 H Lymph % (Auto) 13.8 L Ellis % (Auto) 8.8 Eos % (Auto) 0.6 L Baso % (Auto) 0.5 Neut # (Auto) 5900 Sodium 139 Potassium 3.7 Chloride 101 Carbon Dioxide 28 BUN 16 Creatinine 0.80 Estimated GFR > 60.0 BUN/Creatinine Ratio 20.0 Glucose 113 H Lactate Calcium 8.6 Total Bilirubin 0.5 AST 55 ALT 63 Alkaline Phosphatase 63 Total Creatine Kinase CK-MB (CK-2) CK-MB (CK-2) Rel Index Troponin I B-Natriuretic Peptide Total Protein 6.0 L Albumin 3.4 L Globulin 2.6 Albumin/Globulin Ratio 1.3 Procalcitonin < 0.05 05/17/18 05/17/18 05/17/18 15:15 15:15 15:15 WBC RBC Hgb Hct MCV MCH MCHC RDW Plt Count Neut % (Auto) Lymph % (Auto) [place] % (Auto) Eos % (Auto) Baso % (Auto) Neut # (Auto) Sodium Potassium Chloride Carbon Dioxide BUN Creatinine Estimated GFR BUN/Creatinine Ratio Glucose Lactate 0.9 Calcium Total Bilirubin AST ALT Alkaline Phosphatase Total Creatine Kinase 91 CK-MB (CK-2) TNP CK-MB (CK-2) Rel Index TNP Troponin I 0.052 H B-Natriuretic Peptide 409.0 H Total Protein Albumin Globulin Albumin/Globulin Ratio Procalcitonin Assessment & Plan Plan: Assessment/Plan Narrative: 1 - Acute Pulmonary Hemorrhage - The CXR is very clearly a hemorrhage pattern, which is also confirmed by his hemoptysis complaint and the observed bloody sputum. - With the normal Procalcitonin and WBC this is almost certainly not a bacterial pneumonia - With the BNP of 409 congestive heart failure needs to be considered but the amount of infiltrative pattern seen on the chest x-ray would be expected to have caused a much higher BNP if this was CHF. - with this ongoing hemoptysis and very probable pulmonary hemorrhage he needs to be very soon in a location where a head housekeeper can see him and assess him with possible bronchoscopy etc. - he will be transferred to our intensive care unit overnight while we wait for transfer to [facility]. Unfortunately this is the time a year when most of our tertiary facilities with around the clock pulmonary coverage are over flowing with patients. - Continue Oxygen and follow CBC/CXR results if he remains here. 2 - Possible Pneumonia/CHF - Received 1 dose of Levaquin in the ED tonight - Procalcitonin is normal and the WBC is 7.7 - The BNP is slightly elevated, probably from pulmonary HTN caused by the hemorrhage - He received a dose of Lasix in the ED tonight. - This is not very likely to be Flash Pulmonary Edema so we will continue a gentle IV hydration rate. 3 - Hypertension - Continue Diltiazem.
[2018-05-17 18:51] VITALS: O2SAT 95; O2SAT 97
[2018-05-17] MEDS: DEXTROSE 5%-0.9% NS 1,000 ML 100 ML IV (19:27)
[2018-05-17] MEDS: dilTIAZem CD 240 MG CAP PO ×2 (20:02→20:21)
[2018-05-17 20:16] LABS: INR 1.3 (0.9-1.3); Prothrombin Time 14.5 SECONDS (10.1-12.7)
[2018-05-17 20:19] LABS: PTT Partial Thromboplastin Tim 33 SECONDS (26.4-36.2)
[2018-05-17] MEDS: TRAZODONE 50 MG TABLET PO (20:22)
[2018-05-17] MEDS: TIZANIDINE 4 MG TABLET PO (20:22)
[2018-05-17 20:23] LABS: C-Reactive Protein Quant 6.1 mg/dL (<1.0)
[2018-05-17 21:10] LABS: HIV 1 and 2 Antibody NEGATIVE (NEGATIVE)
[2018-05-17] MEDS: HYDROCODONE/ACET 5/325 TABLET 1 TAB PO (22:55)
[2018-05-17] MEDS: ZOLPIDEM 5 MG TABLET 10 MG PO (22:55)
[2018-05-17 23:00] VITALS: O2SAT 94
[2018-05-18] VITALS (7 sets, daily range): BP systolic 139–161; BP diastolic 81–96; PULSE 82–94; RESP 19–23; TEMP 36.7–37.2; O2SAT 88–97
[2018-05-18] MEDS: HYDROCODONE/ACET 5/325 TABLET 2 TAB PO (01:01)
[2018-05-18] MEDS: TRAMADOL 50 MG TABLET PO (01:19)
--- NOTE | 2018-05-18 03:13 | PC.NURSE ---
Addendum entered by Maryjo Hinson R.N. 05/18/18 05:34: Pt with periods of extreme agitation and irritability. Reports not sleeping for about two weeks since his cough started due to pain and anxiety. Dr. Jaime updated on pt status and pt request for something to help me calm down and just sleep. Ativan given per orders. PCXR completed at bedside. Allowing patient to rest at this time. Original Note: Addendum entered by Maryjo Hinson R.N. 05/18/18 05:06: Pt refusing labs. Becomes very anxious at times, reassurance provided as needed. Original Note: Pt reports needing to have a BM. Suggested using a BSC, pt declined. Adamant about getting up to the BR. Reports SOB on exertion a little bit, yeah. This RN insisted assisting patient to the bathroom and patient states I need all this off and I need to get up now. Educated patient on importance of continuous monitoring of telemetry and oxygenation especially when ambulating to the bathroom. Pt declines stating, I get it, but take me off this stuff.
[2018-05-18] MEDS: DEXTROSE 5%-0.9% NS 1,000 ML 100 ML IV (05:20)
[2018-05-18] MEDS: LORazepam 2 MG/ML SYRINGE 1 MG IV (05:40)
--- NOTE | 2018-05-18 08:00 | DI.RAD.S_ITS ---
PROCEDURE: XR CHEST 1V INDICATIONS: Pulmonary hemorrhage TECHNIQUE: One view of the chest was acquired. COMPARISON: [facility], CR, XR CHEST 2V, 05/17/2018, 14:41. FINDINGS: Surgical changes and devices: None. Lungs and pleura: Bilateral perihilar opacities right greater than left are stable compared to 05/17/2018. Mediastinum: Mediastinal contours appear normal. Heart size is normal. Bones and chest wall: No suspicious bony lesions. Overlying soft tissues appear unremarkable. IMPRESSION: Bilateral perihilar opacity stable compared to 05/17/18. Differential diagnosis includes pneumonia, pulmonary edema and/or pulmonary hemorrhage. Dictated by: Candace Torres MD, PhD on 05/18/2018 at 12:09 Approved by: Candace Torres MD, PhD on 05/18/2018 at 12:09
--- NOTE | 2018-05-18 08:11 | PC.NURSE ---
Addendum entered by Brandon Ruiz R.N. 05/18/18 10:48: Pt's brother took pt's belongings (pt aware). Pt has cell phone. Called to Milly Lopez's cell phone per pt request and left voice message (verbal permission from pt) updating her that pt is leaving en route to [facility]. Pt left [id number] with ambulance RN and staff in no acute distress. Original Note: Addendum entered by Brandon Ruiz R.N. 05/18/18 10:41: Coordinator called to update on plan of care and notify of transfer. No answer. Coordinator left message. Original Note: Addendum entered by Brandon Ruiz R.N. 05/18/18 10:32: Called report to Al KRUGER at [facility]. Pt to go to room 3027 at [facility] under the care of Dr. Bryant. [facility] here. Report given to transportation logistics internship. engineering technology instructor at bedside finishing up echocardiogram. Original Note: Pt resting comfortably eyes closed with HOB elevated 50 degrees. He is drowsy but awakens to verbal stimuli and answers questions appropriately. Quickly falls back asleep. Requiring O2 at 5L NC for SPO2 96%. Reports pain all over but is able to rest. reports he took his own medication (trazadone 100 mg PO and zanaflex 4 mg PO) at 0540 this morning and is now sleeping the best he has in a few weeks. Educated pt and that any medications he takes must be approved by the physician and administered by RN. Reviewed plan of care and necessity for labs. Both pt and verbalize understanding and agree to lab draw. Lab staff notified to come collect labs.
[2018-05-18 08:24] LABS: Add Manual Diff / Slide Review NO; Basophils Percent Auto 0.4 % (0-2); Eosinophils Percent Auto 0.6 % (2-4); Hematocrit 31.6 % (41-53); Hemoglobin 10.7 g/dL (13.5-17.5); Lymphocytes Percent Auto 16.4 % (25-40); Mean Corpuscular HGB Conc 33.9 % (30-36); Mean Corpuscular Hemoglobin 28.6 PG (26-34); Mean Corpuscular Volume 84.5 fL (80-100); Monocytes Percent Auto 11.9 % (3-14); Neutrophils Absolute Auto 4800 /uL (3000-5900); Neutrophils Percent Auto 70.7 % (50-75); Platelet Count 285 X10^3/uL (150-400); Red Blood Cell Count 3.74 X10^6/uL (4.5-5.9); White Blood Cell Count 6.8 X10^3/uL (4.5-11.0)
[2018-05-18] MEDS: levoFLOXacin 500 MG/100 ML PIGGYBACK 100 MG IV (09:23)
--- NOTE | 2018-05-18 09:31 | CM.DANOTE ---
Addendum entered by Celsa Wang LPN 05/18/18 12:37: Pt and his confirmed that pt is currently without a PCP or insurance. They had been in process of trying to get on with [facility] options but it was very confusing. Offered to alert [facility] to this as they can provide assist with this and other financial options for payment. Both were just waiting for a transfer to higher level of pulmonology care. Dr. Jaime and RN coordinator Shawna were working on [facility]. Pt was accepted and did go as planned. Original Note: Discharge Planning/Care Management DCP: assessment: case received, EMR reviewed and met with pt and his Colette: cell: [phone]. Introduced self and role. CM Discharge Assessment Start: 05/18/18 09:30 Freq: Status: Active Protocol: Document 05/18/18 09:30 ITV (Rec: 05/18/18 09:31 ITV [id number]) Discharge Planning Assessment Advance Directives? Yes Advance Directives on File No History Provided By Patient Family Member Medical Record Prior Living Arrangements House Household Members spouse Whiteboard Updated in Patient Room with Yes name and ext. # of Reel Stripper Review Status In Process Next Review Type Continued Stay Review
[2018-05-18 09:50] LABS: Erythrocyte Sedimentation Rate 42 MM/HR (0-15)
[2018-05-18] MEDS: ALBUTEROL/IPRATROPIUM 3 ML AMPUL INH (10:03)
[2018-05-18] MEDS: HYDROCODONE/ACET 5/325 TABLET 1 TAB PO (10:05)
[2018-05-18 10:27] LABS: Adenovirus Not Detected (Not Detect); Bordetella pertussis Not Detected (Not Detect); Chlamydophila pneumoniae Not Detected (Not Detect); Coronavirus 229E Not Detected (Not Detect); Coronavirus HKU1 Not Detected (Not Detect); Coronavirus NL 63 Not Detected (Not Detect); Coronavirus OC43 Not Detected (Not Detect); Human Metapneumovirus Not Detected (Not Detect); Human Rhinovirus/Enterovirus Not Detected (Not Detect); Influenza A Not Detected (Not Detect); Influenza B Not Detected (Not Detect); Mycoplasma pneumoniae Not Detected (Not Detect); Parainfluenza Virus 1 Not Detected (Not Detect); Parainfluenza Virus 2 Not Detected (Not Detect); Parainfluenza Virus 3 Not Detected (Not Detect); Parainfluenza Virus 4 Not Detected (Not Detect); Respiratory Syncytial Virus Not Detected (Not Detect)
--- NOTE | 2018-05-18 10:32 | P.DS_ITS ---
History of Present Illness Chief complaint: shortness of breath, coughing blood up Narrative: This is a 47-year-old male who [facility] apparent pulmonary hemorrhage condition. 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 About 5 days ago he went to the urgent care and was recommended to go to the emergency department but declined. He finally comes in tonight reporting cough with sputum that is bloody and fevers up to 99? along with shortness of breath. 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 He has never had bloody sputum before. There is no family history of pulmonary hemorrhage or other conditions such as Graicela's or Goodpasture's. The CXR shows large central pulmonary infiltrates, right more than left, C/W Pulmonary Hemorrhage. His white count is normal and his procalcitonin is normal. The BNP is slightly elevated but not enough to explain the dramatic appearance. The CT scan is read as showing no PE but showing severe pneumonia patterns. The hemoglobin is 11.3. He is now being transferred to the intensive care unit. Discharge Providers Date of admission: 05/17/18 17:35 Consults: 05/18/18 09:21 Consult to Respiratory Therapy Evaluate & Treat Comment: Physician Instructions: Evaluate and treat Discharge provider: Del Jaime MD Discharge Date: 05/18/18 Summary Discharge Diagnosis: 1 - Acute Pulmonary Hemorrhage 2 - Possible Pneumonia/CHF 3 - Hypertension Hospital Course: Overnight he has remained anxious and short of breath. Lorazepam has been helpful. His hypoxia has worsened slightly, now 91-92% on 2 L nasal cannula. He has no chest pain. The BNP lawrence to 440. The hemoglobin dropped to 10.7. The CRP is 6.1. The INR is 1.3. He continues with reddish brown sputum. The blood pressure is 159/96. The C reactive protein of 6.1 and HIV test negative result are the only results so far of the panel drawn last night including ANCA, JD, ESR. The respiratory viral panel is uniformly negative. Just before he was transferred the echocardiogram was done and the medication reconciliation technician is able to tell me that she expects the manager intermediate to read the ejection fraction as 30% and as severe mitral regurgitation. I had spoken with pulmonology at [facility] who indicated that they would likely perform bronchoscopy, before the echo results had come back. The formal echocardiogram report is still pending. The patient was transferred after discussion with Dr. Bryant the accepting hospitalist, to [facility] for cardiology and pulmonology consultation/ongoing management. Status at Discharge Overall status at discharge: patient is not back to baseline Time Spent with Patient Greater than 30 minutes Exam Vital Signs (past 8 hours): - 05/18/18 03:25 05/18/18 05:00 05/18/18 07:45 Temperature 99 F Pulse Rate 89 Respiratory Rate 19 Blood Pressure 159/96 H Pulse Oximetry 93 91 96 05/18/18 08:00 05/18/18 10:03 Temperature 98.1 F Pulse Rate 82 87 Respiratory Rate 19 22 Blood Pressure 139/93 H Pulse Oximetry 94 88 L Oxygen Delivery Method Room Air Oxygen Flow Rate 5 Objective Labs Result Diagrams: 05/18/18 05:00 05/17/18 15:15 Labs: Laboratory Results - last 24 hr 05/17/18 05/17/18 05/17/18 15:15 15:15 15:15 WBC 7.7 RBC 3.93 L Hgb 11.3 L Hct 33.2 L MCV 84.4 MCH 28.8 MCHC 34.1 RDW 12.9 Plt Count 309 Neut % (Auto) 76.3 H Lymph % (Auto) 13.8 L Hendry % (Auto) 8.8 Eos % (Auto) 0.6 L Baso % (Auto) 0.5 Neut # (Auto) 5900 ESR PT INR APTT Sodium 139 Potassium 3.7 Chloride 101 Carbon Dioxide 28 BUN 16 Creatinine 0.80 Estimated GFR > 60.0 BUN/Creatinine Ratio 20.0 Glucose 113 H Lactate Calcium 8.6 Total Bilirubin 0.5 AST 55 ALT 63 Alkaline Phosphatase 63 Total Creatine Kinase CK-MB (CK-2) CK-MB (CK-2) Rel Index Troponin I C-Reactive Protein B-Natriuretic Peptide Total Protein 6.0 L Albumin 3.4 L Globulin 2.6 Albumin/Globulin Ratio 1.3 Procalcitonin < 0.05 Nasal Screen MRSA (PCR) Chlamy pneumoniae PCR Adenovirus (PCR) B.parapertussis DNA PCR Coronavirus OC43 (PCR) Coronavirus HKU1 (PCR) Coronavirus 229E (PCR) Coronavirus NL63 (PCR) HIV 1&2 Antibody Human Metapneumovir PCR Influenza Type A (PCR) Influenza Type B (PCR) M. pneumoniae (PCR) Parainfluenza 1 (PCR) Parainfluenza 2 (PCR) Parainfluenza 3 (PCR) Parainfluenza 4 (PCR) RSV (PCR) Entero/Rhino (PCR) 05/17/18 05/17/18 05/17/18 15:15 15:15 15:15 WBC RBC Hgb Hct MCV MCH MCHC RDW Plt Count Neut % (Auto) Lymph % (Auto) Hendry % (Auto) Eos % (Auto) Baso % (Auto) Neut # (Auto) ESR PT INR APTT Sodium Potassium Chloride Carbon Dioxide BUN Creatinine Estimated GFR BUN/Creatinine Ratio Glucose Lactate 0.9 Calcium Total Bilirubin AST ALT Alkaline Phosphatase Total Creatine Kinase 91 CK-MB (CK-2) TNP CK-MB (CK-2) Rel Index TNP Troponin I 0.052 H C-Reactive Protein B-Natriuretic Peptide 409.0 H Total Protein Albumin Globulin Albumin/Globulin Ratio Procalcitonin Nasal Screen MRSA (PCR) Chlamy pneumoniae PCR Adenovirus (PCR) B.parapertussis DNA PCR Coronavirus OC43 (PCR) Coronavirus HKU1 (PCR) Coronavirus 229E (PCR) Coronavirus NL63 (PCR) HIV 1&2 Antibody Human Metapneumovir PCR Influenza Type A (PCR) Influenza Type B (PCR) M. pneumoniae (PCR) Parainfluenza 1 (PCR) Parainfluenza 2 (PCR) Parainfluenza 3 (PCR) Parainfluenza 4 (PCR) RSV (PCR) Entero/Rhino (PCR) 05/17/18 05/17/18 05/17/18 19:00 20:02 20:02 WBC RBC Hgb Hct MCV MCH MCHC RDW Plt Count Neut % (Auto) Lymph % (Auto) Hendry % (Auto) Eos % (Auto) Baso % (Auto) Neut # (Auto) ESR PT 14.5 H INR 1.3 APTT 33 Sodium Potassium Chloride Carbon Dioxide BUN Creatinine Estimated GFR BUN/Creatinine Ratio Glucose Lactate Calcium Total Bilirubin AST ALT Alkaline Phosphatase Total Creatine Kinase CK-MB (CK-2) CK-MB (CK-2) Rel Index Troponin I C-Reactive Protein 6.1 H B-Natriuretic Peptide Total Protein Albumin Globulin Albumin/Globulin Ratio Procalcitonin Nasal Screen MRSA (PCR) Negative for mrsa Chlamy pneumoniae PCR Adenovirus (PCR) B.parapertussis DNA PCR Coronavirus OC43 (PCR) Coronavirus HKU1 (PCR) Coronavirus 229E (PCR) Coronavirus NL63 (PCR) HIV 1&2 Antibody Human Metapneumovir PCR Influenza Type A (PCR) Influenza Type B (PCR) M. pneumoniae (PCR) Parainfluenza 1 (PCR) Parainfluenza 2 (PCR) Parainfluenza 3 (PCR) Parainfluenza 4 (PCR) RSV (PCR) Entero/Rhino (PCR) 05/17/18 05/18/18 05/18/18 20:02 05:00 Unknown WBC 6.8 RBC 3.74 L Hgb 10.7 L Hct 31.6 L MCV 84.5 MCH 28.6 MCHC 33.9 RDW 13.0 Plt Count 285 Neut % (Auto) 70.7 Lymph % (Auto) 16.4 L Hendry % (Auto) 11.9 Eos % (Auto) 0.6 L Baso % (Auto) 0.4 Neut # (Auto) 4800 ESR 42 H PT INR APTT Sodium Potassium Chloride Carbon Dioxide BUN Creatinine Estimated GFR BUN/Creatinine Ratio Glucose Lactate Calcium Total Bilirubin AST ALT Alkaline Phosphatase Total Creatine Kinase CK-MB (CK-2) CK-MB (CK-2) Rel Index Troponin I C-Reactive Protein B-Natriuretic Peptide 440.0 H Total Protein Albumin Globulin Albumin/Globulin Ratio Procalcitonin Nasal Screen MRSA (PCR) Chlamy pneumoniae PCR Adenovirus (PCR) B.parapertussis DNA PCR Coronavirus OC43 (PCR) Coronavirus HKU1 (PCR) Coronavirus 229E (PCR) Coronavirus NL63 (PCR) HIV 1&2 Antibody Negative Human Metapneumovir PCR Influenza Type A (PCR) Influenza Type B (PCR) M. pneumoniae (PCR) Parainfluenza 1 (PCR) Parainfluenza 2 (PCR) Parainfluenza 3 (PCR) Parainfluenza 4 (PCR) RSV (PCR) Entero/Rhino (PCR) 05/18/18 Unknown WBC RBC Hgb Hct MCV MCH MCHC RDW Plt Count Neut % (Auto) Lymph % (Auto) Hendry % (Auto) Eos % (Auto) Baso % (Auto) Neut # (Auto) ESR PT INR APTT Sodium Potassium Chloride Carbon Dioxide BUN Creatinine Estimated GFR BUN/Creatinine Ratio Glucose Lactate Calcium Total Bilirubin AST ALT Alkaline Phosphatase Total Creatine Kinase CK-MB (CK-2) CK-MB (CK-2) Rel Index Troponin I C-Reactive Protein B-Natriuretic Peptide Total Protein Albumin Globulin Albumin/Globulin Ratio Procalcitonin Nasal Screen MRSA (PCR) Chlamy pneumoniae PCR Not detected Adenovirus (PCR) Not detected B.parapertussis DNA PCR Not detected Coronavirus OC43 (PCR) Not detected Coronavirus HKU1 (PCR) Not detected Coronavirus 229E (PCR) Not detected Coronavirus NL63 (PCR) Not detected HIV 1&2 Antibody Human Metapneumovir PCR Not detected Influenza Type A (PCR) Not detected Influenza Type B (PCR) Not detected M. pneumoniae (PCR) Not detected Parainfluenza 1 (PCR) Not detected Parainfluenza 2 (PCR) Not detected Parainfluenza 3 (PCR) Not detected Parainfluenza 4 (PCR) Not detected RSV (PCR) Not detected Entero/Rhino (PCR) Not detected Discharge Plan Discharge Plan Patient Disposition: [facility] Transfer to: [facility] Under care of provider: Dr. Bryant Discharge comment: Needs Pulmonology and/or Cardiology consultation Discharge Med Rec/Prescriptions Prescriptions: Continue trazodone 50 mg Tablet 50 mg PO BEDTIME RF: 0 tizanidine 4 mg Tablet 4 mg PO Q6-8H PRN (Reason: Spasms) RF: 0 diltiazem HCl 240 mg Capsule,Extended Release 24 Hr 240 mg PO QPM RF: 0 Discharge Orders: Discharge (Order); Ordered 05/18/18 Ordered By: Del Jaime Discharge Data Attending Provider: Del Jaime Admit Date/Time: 05/17/18 17:35 Discharges patient from system. Discharge Date/Time: 05/18/18 10:52
--- NOTE | 2018-05-18 12:00 | DI.ECHO.S_ITS ---
Echocardiogram Report + + :Name: LIZBETH CHAO Study Date: 05/18/2018 Height: 72 in : :[facility] Weight: 216 lb : : Gender: Male BSA: 2.2 m2 : :: 1970 Age: 47 yrs BP: 139/93 mmHg: :Reason For Study: CHF : : Performed By: Summer Farris : :Referring: CIARAN BISHOP : + + Interpretation Summary The left ventricle is severely dilated. Left ventricular systolic function is moderate to severely reduced. The ejection fraction is estimated to be 30-35%. There is hypokinesis to akinesis along the spetum, inferior, and anterior wall. The apex and lateral wall show a more preserved contractility in comparison to rest of LV. The right ventricle is normal in size and function. Pulmonary artery pressures cannot be estimated because of the lack of a measurable TR jet velocity. The left atrium is severely dilated. Right atrial size is normal. The mitral valve leaflets appear mildly thickened, but open well. There is severe mitral regurgitation. There is no other significant valvular heart disease. The aortic root is borderline dilated. The ascending aorta is mildly enlarged. Bilateral plural effusions noted. Procedure: A two-dimensional transthoracic echocardiogram with color flow and Doppler was performed. The study quality was technically adequate. There is no prior echocardiogram noted for this patient. The heart rate ranged between 78-100 bpm during the study. Left Ventricle: The left ventricle is severely dilated. Left ventricular wall thickness is normal. There is no thrombus. Left ventricular systolic function is moderate to severely reduced. The ejection fraction is estimated to be 30-35%. There is hypokinesis to akinesis along the spetum, inferior, and anterior wall. The apex and lateral wall show a more preserved contractility in comparison to rest of LV. Right Ventricle: The right ventricle is normal in size and function. Atria: The left atrium is severely dilated. Right atrial size is normal. There is no Doppler evidence for an interatrial shunt. Mitral Valve: The mitral valve leaflets appear mildly thickened, but open well. There is severe mitral regurgitation. Aortic Valve: The aortic valve opens well. There is no aortic valve stenosis. No aortic regurgitation is present. Tricuspid Valve: The tricuspid valve is normal in structure and function. There is a trace or physiologic amount of tricuspid regurgitation. Pulmonary artery pressures cannot be estimated because of the lack of a measurable TR jet velocity. Pulmonic Valve: The pulmonic valve is not well visualized. There is a trace or physiologic amount of pulmonic regurgitation. There is no other significant valvular heart disease. Great Vessels: The aortic root is borderline dilated. The ascending aorta is mildly enlarged. The pulmonary is not well visualized. The IVC is dilated (diameter is greater than 2.1 cm) yet it collapses greater than 50% with a sniff. This suggests a right atrial pressure of 8 mm Hg. Pericardium/ Pleura There is no pericardial effusion. Bilateral plural effusions noted. MMode/2D Measurements & Calculations LVIDd: 7.6 cm LVOT diam: 2.8 cm LVIDs: 6.6 cm Ao root diam: 4.1 cm FS: 13.2 % asc Aorta Diam: 3.9 cm IVSd: 0.95 cm LVPWd: 0.92 cm LV chavez. diameter/BSA (cm/m^2): 3.4 LV sys. diameter/BSA (cm/m^2): 3.0 LA A2 area: 42.1 cm2 RA long axis: 6.1 cm LA A4 area: 31.2 cm2 RA area: 21.8 cm2 LA length (vol): 6.7 cm RA vol: 65.8 ml LA vol: 167.7 ml RA : 29.9 ml/m2 LA vol index: 76.2 ml/m2 IVC diam: 2.5 cm RVD1 (basal): 3.6 cm TAPSE: 3.2 cm Doppler Measurements & Calculations Ao V2 max: 138.3 cm/sec LVOT Max Silas: 85.6 cm/sec Ao V2 mean: 103.5 cm/sec LV V1 max P.9 mmHg Ao max P.6 mmHg LV V1 VTI: 13.0 cm Ao mean P.6 mmHg CIARA(I,D): 3.6 cm2 Ao V2 VTI: 21.2 cm CIARA(V,D): 3.7 cm2 sev ratio: 0.61 CIARA indexed to BSA (cm^2/m^2): 1.7 MV E max silas: 129.2 cm/sec MV P1/2t max silas: 129.2 cm/sec MV A max silas: 54.9 cm/sec MVA(P1/2t): 4.6 cm2 MV E/A: 2.4 MV P1/2t: 47.4 msec _ Reading Physician:PM
[2018-05-21 19:40] LABS: ANCA Screen Negative (Negative)
[2018-05-24 00:20] LABS: ANA Screen NEGATIVE (Negative); DNA Antibody Crithidia IFA NEGATIVE (Negative); Rheumatoid Factor <14 IU/mL; Sjogren Antiboday SS-A <1.0 NEG AI (<1.0 NEGATIVE); Sjogren Antiboday SS-B <1.0 NEG AI (<1.0 NEGATIVE); Sm Antibody <1.0 NEG AI (<1.0 NEGATIVE); Sm/RNP Antibody <1.0 NEG AI (<1.0 NEGATIVE)
== END 2018-05-18 10:52 | disposition short-term general hospital (02) | DRG 204 ==
LOC: ED 17:34 → AC 17:36 → ICU 05-18 10:13
PROVIDERS: Admitting Provider Family Medicine; Emergency Provider Nurse Practitioner Family; Visit Provider Family Medicine
DX: R04.89 Hemorrhage from other sites in respiratory passages (principal); J18.9 Pneumonia, unspecified organism; I50.21 Acute systolic (congestive) heart failure; J96.01 Acute respiratory failure with hypoxia; I10 Essential (primary) hypertension; F17.210 Nicotine dependence, cigarettes, uncomplicated
CPT/HCPCS: 36415; 36591; 71045; 71046; 71275; 80053; 82550; 83605; 83880; 84145; 84484; 85025; 85610; 85651; 85730; 86021; 86038; 86140; 86430; 86703; 87040; 87070; 87077; 87205; 87633; 87797; 93005; 93010; 93306; 94640; 96361; 96374; 99283; 99285; J1940; J1956; J2060; J7613; Q9967